=== PATIENT | female | born 1990 | race Caucasian/White ===

== ENCOUNTER 2017-11-29 12:03 | Emergency (ER) | payer OTHER, SELFPAY ==
[2017-11-29 12:40] VITALS: BP 121/64; PULSE 67; RESP 20; TEMP 37.1; O2SAT 99; BMI 38.7
[2017-11-29 13:09] VITALS: BP 153/93; PULSE 90; RESP 18; TEMP 36.8; O2SAT 100; BMI 33.9
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
[2017-11-29 14:04] LABS: Urine Pregnancy, HCG Qual. Negative (Negative)
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
[2017-11-29 16:04] VITALS: BP 142/75; PULSE 86; RESP 12; O2SAT 98
== END 2017-11-29 15:45 | disposition home or self-care (01) ==
LOC: UTC 12:47 → ER 12:53
PROVIDERS: Emergency Provider Emergency Medicine; Family Provider Family Medicine
DX: S16.1XXA Strain of muscle, fascia and tendon at neck level, initial encounter (principal); S40.011A Contusion of right shoulder, initial encounter; S70.01XA Contusion of right hip, initial encounter; S30.0XXA Contusion of lower back and pelvis, initial encounter; V87.7XXA Person injured in collision between other specified motor vehicles (traffic), initial encounter
CPT/HCPCS: 70450; 71010; 71045; 72110; 72125; 73030; 73502; 81025; 99283

== ENCOUNTER 2017-12-24 14:00 | Outpatient (RCR) | payer OTHER, SELFPAY ==
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
== END 2017-12-24 14:02 | disposition home or self-care (01) ==
LOC: OT 14:00
PROVIDERS: Family Provider Family Medicine; PCP Nurse Practitioner Family; Visit Provider Nurse Practitioner Family
DX: M25.512 Pain in left shoulder (principal)
CPT/HCPCS: 97014; 97110; 97163; 97165; G0283

== ENCOUNTER → 2019-03-03 16:01 | Day surgery (SDC) | payer SELFPAY ==
[2019-03-03] VITALS (11 sets, daily range): BP systolic 103–134; BP diastolic 62–76; PULSE 63–101; RESP 12–18; TEMP 36.6–37.2; O2SAT 96–100; BMI 38.7
--- NOTE | 2019-03-03 16:54 | HMH.OPNOTE ---
Date of procedure: 03/03/19 Pre-op Diagnosis:: Recurrent perianal abscess Post-op Diagnosis:: Same Procedure performed:: Incision and drainage of recurrent perianal abscess Surgeon:: Abhishek Edouard MD Aircraft Hydraulic Equipment Mechanic(s):: Rayray LAUNDRY BAG PUNCH OPERATOR:: Arturo Loaiza Anesthesia: LMA Estimated blood loss (mL): 5 Operative findings:: Small pocket of undrained fluid secondary to early partial closure of prior incision and drainage site Operative note:: After informed consent was obtained the patient was taken to the operating room and placed in the supine position. General anesthesia with laryngeal mask airway was achieved. She was transferred to the right lateral decubitus position. The perianal region was prepped and draped in a sterile fashion. The prior incision and drainage site was carefully opened bluntly with a finger dissection . A very thin skin margin was noted to be overlying the pocket and a small amount of undrained fluid was evacuated. The overlying skin was excised. Electrocautery was utilized to achieve hemostasis and the wound was packed open with moistened Kerlix. The entire area was infiltrated with 1% lidocaine. The patient was transferred to recovery in stable condition after removal of her laryngeal mask airway. Condition: stable Disposition: PACU Specimens:: None Complications:: No immediate
--- NOTE | 2019-03-03 16:57 | P.OP_ITS ---
Date of procedure: 03/03/19 Pre-op Diagnosis:: Recurrent perianal abscess Post-op Diagnosis:: Same Procedure performed:: Incision and drainage of recurrent perianal abscess Surgeon:: Abhishek Edouard MD Draw Fire Operator(s):: Rayray RETAIL STOCKER:: Arturo Loaiza Anesthesia: LMA Estimated blood loss (mL): 5 Operative findings:: Small pocket of undrained fluid secondary to early partial closure of prior incision and drainage site Operative note:: After informed consent was obtained the patient was taken to the operating room and placed in the supine position. General anesthesia with laryngeal mask airway was achieved. She was transferred to the right lateral decubitus position. The perianal region was prepped and draped in a sterile fashion. The prior incision and drainage site was carefully opened bluntly with a finger dissection . A very thin skin margin was noted to be overlying the pocket and a small amount of undrained fluid was evacuated. The overlying skin was excised. Electrocautery was utilized to achieve hemostasis and the wound was packed open with moistened Kerlix. The entire area was infiltrated with 1% lidocaine. The patient was transferred to recovery in stable condition after removal of her laryngeal mask airway. Condition: stable Disposition: PACU Specimens:: None Complications:: No immediate
--- NOTE | 2019-03-03 17:00 | P.PN_ITS ---
[facility] Anesthesia Checklist - Structural Data Admitted From: Home Planned Operative Procedure/s: i/d perirectal abcess Consent for Planned Operative Procedure(s) Verified: Yes - Airway Assessment C-Spine Mobility Assessed: Yes TMJ Mobility Assessed: Yes Dentition: Good Dentition - Neurological Assessment Level of Consciousness: Awake, Alert, Appropriate - Anesthesia Plan Anesthesia Risk discussed: Yes Anesthesia Plan: Verified ASA Class: II Anesthesia Type: General [facility] History I have reviewed the patient's past medical history: Yes Medical History: Denies:: Cancer, Diabetes Mellitus Type 1, Diabetes Mellitus Type 2, Internal Pacemaker, MRSA, Seizures *Have you ever received a pneumonia vaccine?: No *Have you received a flu vaccine this season?: Yes Other Medical History: Denies: Blood Transfusion Reaction Laterality Cases: Bilateral: Tonsillectomy Other Surgeries: Yes: Other. No: Pacemaker Amputation: No Fractures: Yes (LEFT ARM, AND RIGHT ANKLE) - *Social History Educational Level: Attended College Smoking Status: Current every day smoker Tobacco Type: cigarettes # Packs/Day (cigarettes): 1 Alcohol Intake: never Alcohol Intake Frequency:: a few times a month Substance Use Type: denies use *Occupational Status:: unemployed Housing: house Household Members: friend(s) *Travel in the last 8 weeks: None - Psychiatric History Expresses thoughts of harming self/others: None Suicide Plan Description: No Plan Family Hx:: Hypertension, Hyperlipidemia
--- NOTE | 2019-03-03 17:00 | HMH.ANESI ---
[facility] Anesthesia Record Part I Intake, IV Amount: 500 Estimated blood loss (mL): 0 Urine output (mL): 0 Blood Pressure: 130/75 SaO2: 96 Pulse Rate: 92 Respiratory Rate: 12 Temperature: 98.5 F Patient is:: Awake, Stable Stable to PACU at:: 16:55
--- NOTE | 2019-03-03 17:01 | P.PN_ITS ---
[facility] Anesthesia Record Part II Discharge Time: 17:25 Destination: [facility] PACU nurse assessment reviewed?: Yes Patient Condition:: Good Anesthesia Complications:: None Swallowing reflex intact?: Yes Cyanosis?: No
--- NOTE | 2019-03-03 17:01 | HMH.ANESII ---
[facility] Anesthesia Record Part II Discharge Time: 17:25 Destination: [facility] PACU nurse assessment reviewed?: Yes Patient Condition:: Good Anesthesia Complications:: None Swallowing reflex intact?: Yes Cyanosis?: No
== END ==
PROVIDERS: Visit Provider Surgery
PROC: (CPT 46050; principal; 2019-03-03 16:00)
DX: K61.0 Anal abscess (principal)
CPT/HCPCS: 46050; 96374; J1956

== ENCOUNTER → 2020-07-05 11:46 | Outpatient (CLI) | payer BC, SELFPAY ==
[2020-07-05 12:15] LABS: Basophils % 0.2 % (0.1-2.0); Eosinophils # 0.1 K/mm3 (0.0-0.4); Hematocrit 37.6 % (37.0-47.0); Lymphocytes # 2.7 K/mm3 (0.7-4.5); Lymphocytes % 28.1 % (10-50); Mean Corpuscular HGB Conc 34.4 g/dL (31.8-35.4); Mean Corpuscular Hemoglobin 32.7 pg (27.0-31.2); Mean Platelet Volume 7.1 fl (7.4-10.4); Monocytes # 0.4 K/mm3 (0.1-1.0); Monocytes % 4.1 % (1.7-9.3); Neutrophils # 6.3 K/mm3 (1.8-7.8); Neutrophils % 66.5 % (37.0-80.0); Platelet Count 234 K/mm3 (142-424); Red Blood Count 3.96 M/mm3 (4.20-5.40); Red Cell Distribution Width 13.4 % (11.5-17.5); White Blood Count 9.5 K/mm3 (4.8-10.8)
[2020-07-06 10:16] LABS: HIV Screen 4th Generation wRfx Non Reactive (Non Reactive); Hepatitis B Surface Antigen Negative (Negative); Hepatitis C Antibody <0.1 s/co ratio (0.0-0.9); Rubella Antibodies, IgG 4.11 index (Immune >0.99)
[2020-07-06 12:33] LABS: Rapid Plasma Reagin Ab Titer Non Reactive (NonRea<1:1)
== END ==
PROVIDERS: Visit Provider Nurse Practitioner Obstetrics & Gynecology
DX: Z34.90 Encounter for supervision of normal pregnancy, unspecified, unspecified trimester (principal)
CPT/HCPCS: 36415; 85025; 86592; 86703; 86762; 86850; 87340; 87380; G0432

== ENCOUNTER → 2020-07-13 13:26 | Outpatient (CLI) | payer BC, SELFPAY ==
--- NOTE | 2020-07-13 13:26 | US_ITS ---
PROCEDURE: US OB <= 14 WEEKS FETUS CLINICAL INDICATION: for dates Early Ob ultrasound for dates COMPARISON: No exams were available for comparison FINDINGS: Cervix is closed and measures 3.5 cm in length transvaginal. There is a single live fetus present with an average ultrasound age of 12 weeks and 1 day. [place]-rump length is 12 weeks 0 days, BPD 12 weeks 2 days, HC 12 weeks 2 days, AC 12 weeks 0 days, FL 12 weeks 1 day. Estimated due date is 01/24/2021. heart body motion is noted. The placenta is forming posteriorly. Unremarkable adnexa. IMPRESSION: Live IUP at 12 weeks 1 day Estimated due date by Ultrasound is 01/24/2021 Dictated by: Misael Navas MD 07/13/2020 14:32 Misael Navas MD in [place] 07/13/2020 14:32
== END ==
PROVIDERS: PCP Nurse Practitioner Family; Visit Provider Nurse Practitioner Obstetrics & Gynecology
DX: Z34.90 Encounter for supervision of normal pregnancy, unspecified, unspecified trimester (principal)
CPT/HCPCS: 76801

== ENCOUNTER 2020-07-28 12:06 | Emergency (ER) | payer BC, SELFPAY ==
[2020-07-28 12:17] VITALS: BP 99/46; PULSE 92; RESP 16; TEMP 36.9; O2SAT 98; BMI 249.9
--- NOTE | 2020-07-28 12:32 | HMH.EDGENADL ---
ED Disposition Clinical Impression: Abscess Qualifiers: Weeks of gestation: 14 weeks Qualified Code(s): Z3A.14 - 14 weeks gestation of Disposition: Home, Self-Care Condition on Discharge: Good Instructions: DI for Wound Infection Prescriptions: clindamycin HCL [Clindamycin HCl 300mg Cap] 300 mg PO Q8 #30 cap Transmission Status: Sent to [id number] Referrals: Jessica Arrington APRN [Primary Care Provider] - - Critical Care Critical Care Time: No Attestation: On 07/28/20, the high probability of a clinically significant, sudden or life threatening deterioration of the following system(s) required my full and direct attention, intervention and personal management. The time I documented below is in addition to time spent performing reported procedures but includes the following listed in this critical care notation. Medical Decision Making - Medical Records Medical records reviewed: Yes: I reviewed the patient's medical records. - Will Inquiry Pt receiving controlled substance: No Vital Signs: 07/28/20 12:17 Temperature 98.5 F Temperature Source Oral Pulse Rate [Radial] 92 H Respiratory Rate 16 Blood Pressure [Right Arm] 99/46 L Blood Pressure Mean [Right Arm] 63 Blood Pressure Position [Right Arm] Sitting 02 Sat by Pulse Oximetry 98 Oxygen Delivery Method Room Air Orders (Tests/Meds): ORDERS Category Date Time Status Wound Culture and Gram Stain Stat Micro 07/28/20 12:30 Ordered General Adult HPI - General Chief complaint: Wound/Laceration Stated complaint: large bump on left ear Time Seen by Provider: 07/28/20 12:25 Mode of Arrival: Ambulatory Source of Information: Patient Limitations: No Limitations Description of Symptoms (Recalled from ER Triage Doc. by RN): TO ED PER PVT CAR WITH C/O ABSCESS LT EAR STARTING SEEN BY PCP YESTERDAY GIVEN AMOX STATES GETTING WORSE. DENIES FEVER, CHILLS, NAUSEA, PT STATES 14 WEEKS PREG - History of Present Illness HPI narrative: This is a 29-year-old female that presents with swelling behind the left ear accompanied by tenderness. Ongoing x2 days. Patient currently on antibiotics for soft tissue infection. No fever no chills. No discharge as of yet. Pain is sharp constant worsened with palpation. Nonradiating. - Related Data Home Medications Medication Instructions Recorded Confirmed prenat.vits,peyman,pmo-zqis-dlvvo 1 tab PO DAILY 07/05/20 07/05/20 Previous Rx's Medication Instructions Recorded azithromycin 500 mg tablet 500 mg PO DAILY #2 tab 07/09/20 clindamycin HCL [Clindamycin HCl 300 mg PO Q8 #30 cap 07/28/20 300mg Cap] Allergies Allergy/AdvReac Type Severity Reaction Status Date / Time No Known Allergies Allergy Verified 07/05/20 10:50 [facility] History - Hepatitis A Screen Drug use history?: No High risk sexual behaviors?: No History of sexually transmitted infection?: No Currently employed?: No Childcare worker?: No Do you have indoor plumbing?: Yes Do you have electricity?: Yes Attestation statement:: This patient has been screened for Hepatitis A risk factors. I have reviewed the patient's past medical history: Yes Medical History: Denies:: Cancer, Diabetes Mellitus Type 1, Diabetes Mellitus Type 2, Internal Pacemaker, MRSA, Seizures Other Medical History: Denies: Blood Transfusion Reaction Laterality Cases: Bilateral: Tonsillectomy Other Surgeries: Yes: Other. No: Pacemaker Amputation: No Fractures: Yes (LEFT ARM, AND RIGHT ANKLE) Comment: I & D of perirectal abscess x2 - Social History Smoking Status: Former smoker Tobacco Type: cigarettes # Packs/Day (cigarettes): 1 Alcohol Intake: never Alcohol Intake Frequency:: a few times a month Substance Use Type: denies use Occupational Status: unemployed Housing: house Household Members: friend(s) Family Hx:: Hypertension, Hyperlipidemia ROS Obtained: Yes All systems reviewed & no additi
[2020-07-28 12:52] VITALS: BP 100/65; PULSE 78; RESP 16; TEMP 36.6; O2SAT 98
== END 2020-07-28 12:54 | disposition home or self-care (01) ==
PROVIDERS: Emergency Provider Emergency Medicine; PCP Nurse Practitioner Family
DX: H60.02 Abscess of left external ear (principal); Z3A.14 14 weeks gestation of pregnancy; Z87.891 Personal history of nicotine dependence; Z90.09 Acquired absence of other part of head and neck
CPT/HCPCS: 69000; 87070; 87077; 87186; 87205; 99282

== ENCOUNTER → 2020-09-06 13:48 | Outpatient (CLI) | payer BC, SELFPAY ==
--- NOTE | 2020-09-06 13:53 | US_ITS ---
PROCEDURE: US OB /MATERNAL DETAIL CLINICAL INDICATION: 20 week gestation COMPARISON: US US OB <= 14 WEEKS FETUS from 07/13/2020 FINDINGS: There is a single live fetus present which is in breech presentation. heart and body motion noted. The placenta is fundal in implantation and grade 1. The cervix is closed measuring 4 cm. This this Complete survey performed and was unremarkable on the submitted images as in PACS. No discrete anomalies identified on survey imaging by technologist. Active fetus. Three-vessel cord with satisfactory umbilical cord insertion. 4- chamber heart noted. Survey of brain & ventricles Unremarkable. Face and neck survey unremarkable. Diaphragm and chest views unremarkable. Abdomen: Both kidneys noted and unremarkable. Stomach noted and satisfactory. Spine: Survey of the spine satisfactory with no anomalies identified nor imaged. Both arms and legs noted. Amniotic Fluid: Adequate. Maternal adnexa: No significant findings. Measurements: Average ultrasound age 19weeks 5days. Gestational Age 19weeks 5days Estimated due date by ultrasound age 0301/26/2021. Estimated weight 307g BPD = 19weeks 6days OFD = 20 weeks 1 day HC = 19weeks 2days AC = 19weeks 6days FL = 19weeks 6days Growth Percentile= 36% Heart Rate = 150bpm Cerebellum = 20weeks Humerus = 20weeks HC/AC is 1.14 CI is 0.78 FL/BPD is 0.69 FL/AC is 0.22 IMPRESSION: Live IUP in breech presentation with an average ultrasound age of 19 weeks 5 days. No obvious anomalies. Please see above for detail. Dictated by: Misael Navas MD 09/08/2020 08:19 Misael Navas MD in [place] 09/08/2020 08:19
== END ==
PROVIDERS: PCP Nurse Practitioner Family; Visit Provider Nurse Practitioner Obstetrics & Gynecology
DX: Z34.90 Encounter for supervision of normal pregnancy, unspecified, unspecified trimester (principal); Z3A.20 20 weeks gestation of pregnancy
CPT/HCPCS: 76811

== ENCOUNTER 2020-09-13 14:33 | Emergency (ER) | payer BC, SELFPAY ==
[2020-09-13 14:53] VITALS: BP 109/59; PULSE 98; RESP 20; TEMP 37; O2SAT 97; BMI 38.7
--- NOTE | 2020-09-13 15:37 | HMH.EDUTC ---
[facility] [place] Disposition Clinical Impression: Otitis media, left Qualifiers: Otitis media type: suppurative Chronicity: acute Recurrence: non-recurrent Spontaneous tympanic membrane rupture: without spontaneous rupture Qualified Code(s): H66.002 - Acute suppurative otitis media without spontaneous rupture of ear drum, left ear Disposition: Home, Self-Care Condition on Discharge: Good Instructions: Middle Ear Infection Additional Instructions: Drink plenty of fluids. Take tylenol for pain or fever. Take the medications as directed. Follow up with your regular doctor. Let our ob doctor know that you are sick and taking antibiotics. GO TO THE ER FOR ANY WORSENING SYMPTOMS Prescriptions: Amoxicillin [Amoxicillin 500mg Tab] 500 mg PO TID 10 Days #30 tab Transmission Status: Received by [id number] Referrals: Jessica Arrington APRN [Primary Care Provider] - Time of Disposition: 15:40 Medical Decision Making - Medical Records Medical records reviewed: No: I reviewed the patient's medical records. - Will Inquiry Pt receiving controlled substance: No Vital Signs: 09/13/20 14:53 09/13/20 15:41 Temperature 98.6 F 98.6 F Temperature Source Oral Pulse Rate 98 H Pulse Rate [Left Brachial] 98 H Respiratory Rate 20 20 Blood Pressure 109/59 L Blood Pressure [Left Arm] 109/59 L Blood Pressure Mean [Left Arm] 75 Blood Pressure Source [Left Arm] Automatic Cuff Blood Pressure Position [Left Arm] Sitting 02 Sat by Pulse Oximetry 97 Oxygen Delivery Method Room Air [facility] [place] HPI - General Stated complaint: ear pain Time Seen by Provider: 09/13/20 15:38 Mode of Arrival: Ambulatory Source of Information: Patient Limitations: No Limitations Description of Symptoms (Recalled from Triage Doc. by RN): PATIENT C/O SORE THROAT AND LEFT EAR PAIN SINCE YESTERDAY. STATES SHE HEARS A CRACKLING IN LEFT EAR VO SHE SWALLOWS HEENT Symptoms (Recalled from RN notes): Yes Resp Symptoms (Recalled from RN notes): No Skin Symptoms (Recalled from RN notes): No MS Symptoms (Recalled from RN notes): No Functional Status (Recalled from RN notes): WNL - History of Present Illness Provider Complaint: She c/o left ear pain for the past 2 days. She is 21 weeks . - Related Data Home Medications Medication Instructions Recorded Confirmed prenat.vits,peyman,[id number] 1 tab PO DAILY 07/05/20 08/30/20 Previous Rx's Medication Instructions Recorded ferrous sulfate 325 mg (65 mg 325 mg PO DAILY #30 tab 08/30/20 iron) tablet Amoxicillin [Amoxicillin 500mg Tab] 500 mg PO TID 10 Days #30 tab 09/13/20 Allergies Allergy/AdvReac Type Severity Reaction Status Date / Time No Known Allergies Allergy Verified 08/30/20 10:16 - Worker's Comp Is this a Worker's Comp case?: No [facility] History - Hepatitis A Screen Drug use history?: No High risk sexual behaviors?: No History of sexually transmitted infection?: No Currently employed?: No Childcare worker?: No Do you have indoor plumbing?: Yes Do you have electricity?: Yes Attestation statement:: This patient has been screened for Hepatitis A risk factors. I have reviewed the patient's past medical history: Yes Medical History: Denies:: Cancer, Diabetes Mellitus Type 1, Diabetes Mellitus Type 2, Internal Pacemaker, MRSA, Seizures Other Medical History: Denies: Blood Transfusion Reaction Laterality Cases: Bilateral: Tonsillectomy Other Surgeries: Yes: Other. No: Pacemaker Amputation: No Fractures: Yes (LEFT ARM, AND RIGHT ANKLE) Comment: I & D of perirectal abscess x2 - Social History Smoking Status: Former smoker Tobacco Type: cigarettes # Packs/Day (cigarettes): 1 Alcohol Intake: never Alcohol Intake Frequency:: a few times a month Substance Use Type: denies use Occupational Status: other Housing: house Household Members: friend(s) Family Hx:: Hypertension, Hyperlipidemia ROS Obtained: Yes All systems reviewed & no additional complai
[2020-09-13 15:41] VITALS: BP 109/59; PULSE 98; RESP 20; TEMP 37; O2SAT 97
== END 2020-09-13 15:44 | disposition home or self-care (01) ==
PROVIDERS: Emergency Provider Nurse Practitioner Family; PCP Nurse Practitioner Family
DX: H66.002 Acute suppurative otitis media without spontaneous rupture of ear drum, left ear (principal); Z3A.21 21 weeks gestation of pregnancy; Z87.891 Personal history of nicotine dependence
CPT/HCPCS: 99201

== ENCOUNTER → 2020-10-25 14:57 | Outpatient (CLI) | payer BC, SELFPAY ==
[2020-10-25 15:00] LABS: Microscopic, Urine URINE MICROSCOPIC (MICROSCOPIC)
[2020-10-25 15:39] LABS: Appearance,Urine CLEAR (Clear); Bilirubin,Urine Negative (Negative); Blood, Urine Negative (Negative); Color,Urine YELLOW (Yellow); Glucose,Urine (UA) Negative (Negative); Ketones,Urine Negative (Negative); Leukocyte Esterase,Urine TRACE (Negative); Nitrate,Urine Negative (Negative); Protein,Urine Negative (Negative); Urobilinogen,Urine 0.2 EU/dl (0.2)
[2020-10-25 16:16] LABS: WBC,Urine Occasional #/hpf (0-3)
== END ==
PROVIDERS: Visit Provider Nurse Practitioner Obstetrics & Gynecology
DX: Z34.90 Encounter for supervision of normal pregnancy, unspecified, unspecified trimester (principal)
CPT/HCPCS: 81001

== ENCOUNTER → 2020-10-27 11:20 | Outpatient (CLI) | payer BC, SELFPAY ==
[2020-10-27 12:23] LABS: Glucose,Fasting 89 mg/dl (74-100)
[2020-10-27 13:09] LABS: Glucose 1 Hour 141 mg/dL (74-100)
== END ==
PROVIDERS: Visit Provider Nurse Practitioner Obstetrics & Gynecology
DX: Z34.90 Encounter for supervision of normal pregnancy, unspecified, unspecified trimester (principal)
CPT/HCPCS: 36415; 82951

== ENCOUNTER → 2020-11-03 07:39 | Outpatient (CLI) | payer BC, SELFPAY ==
[2020-11-03 08:36] LABS: Glucose,Fasting 101 mg/dl (74-100)
[2020-11-03 10:16] LABS: Glucose 1 Hour 143 mg/dL (74-100)
[2020-11-03 11:15] LABS: Glucose 2 Hour 103 mg/dL (74-100)
[2020-11-03 12:38] LABS: Glucose 3 Hour 82 mg/dL (74-100)
== END ==
PROVIDERS: Visit Provider Nurse Practitioner Obstetrics & Gynecology
DX: Z34.90 Encounter for supervision of normal pregnancy, unspecified, unspecified trimester (principal)
CPT/HCPCS: 36415; 82951

== ENCOUNTER → 2020-11-27 14:52 | Outpatient (CLI) | payer BC, SELFPAY ==
--- NOTE | 2020-11-27 14:53 | US_ITS ---
PROCEDURE: US OB FOLLOW UP CLINICAL INDICATION: LGA Large for gestational age COMPARISON: US US OB /MATERNAL DETAIL from 09/06/2020 FINDINGS: There is a single live fetus present which is in cephalic presentation. heart and body motion noted. Placenta is fundal and grade 2. Average ultrasound age 31 weeks 5 days. Estimated weight 1797 g. This is 39th percentile. BPD 31 weeks 4 days, OFD 31 weeks 4 days, HC 31 weeks 3 days, AC 31 weeks 6 days, FL 31 weeks 4 days. Heart rate is 165 BPM. NIKKIE is normal at 13 cm. Biophysical profile 8 of 8. Cervix is closed and measures 4 cm IMPRESSION: Live IUP at 31 weeks 5 days with an estimated weight of 1797 g which is 39th percentile. Please see above for detail. Dictated by: Misael Navas MD 11/28/2020 06:39 Misael Navas MD in [place] 11/28/2020 06:39
== END ==
PROVIDERS: PCP Nurse Practitioner Family; Visit Provider Nurse Practitioner Obstetrics & Gynecology
DX: O36.60X0 Maternal care for excessive fetal growth, unspecified trimester, not applicable or unspecified (principal)
CPT/HCPCS: 76816; 76819

== ENCOUNTER → 2020-12-25 18:11 | Outpatient (CLI) | payer BC, SELFPAY | PROVIDERS: Visit Provider Nurse Practitioner Obstetrics & Gynecology | DX: Z34.90 Encounter for supervision of normal pregnancy, unspecified, unspecified trimester (principal); Z3A.35 35 weeks gestation of pregnancy | CPT/HCPCS: 86403 ==

== ENCOUNTER → 2021-01-03 11:23 | Outpatient (CLI) | payer BC, SELFPAY | PROVIDERS: Visit Provider Nurse Practitioner Obstetrics & Gynecology | DX: Z20.822 Contact with and (suspected) exposure to COVID-19 (principal); U07.1 COVID-19 | CPT/HCPCS: U0003 ==

== ENCOUNTER → 2021-01-16 17:01 | Outpatient (CLI) | payer BC, SELFPAY ==
[2021-01-22 07:19] VITALS: BMI 44.9
== END ==
PROVIDERS: Visit Provider Nurse Practitioner Obstetrics & Gynecology
DX: N39.0 Urinary tract infection, site not specified (principal)
CPT/HCPCS: 87086; 87088; 87186

== ENCOUNTER → 2021-01-22 07:52 | Outpatient (CLI) | payer BC, SELFPAY | PROVIDERS: Visit Provider Nurse Practitioner Obstetrics & Gynecology | DX: Z11.52 Encounter for screening for COVID-19 (principal) | CPT/HCPCS: U0003 ==

== ENCOUNTER 2021-01-23 05:04 | Inpatient (IN) | payer BC, SELFPAY ==
[2021-01-23] VITALS (10 sets, daily range): BP systolic 114–132; BP diastolic 41–77; PULSE 85–99; RESP 12–18; TEMP 36.4–37.1; O2SAT 99–100; BMI 44.9; BMI 44.6
[2021-01-23 06:11] LABS: Microscopic, Urine URINE MICROSCOPIC (MICROSCOPIC)
[2021-01-23 06:27] LABS: Basophils % 0.2 % (0.1-2.0); Eosinophils # 0.1 K/mm3 (0.0-0.4); Eosinophils % 0.8 % (0.1-12.0); Hematocrit 36.6 % (37.0-47.0); Hemoglobin 12.1 g/dL (12.2-16.2); Lymphocytes # 2.5 K/mm3 (0.7-4.5); Lymphocytes % 25.3 % (10-50); Mean Corpuscular Hemoglobin 30.2 pg (27.0-31.2); Mean Corpuscular Volume 91.6 fl (81-99); Mean Platelet Volume 7.8 fl (7.4-10.4); Monocytes # 0.5 K/mm3 (0.1-1.0); Monocytes % 4.7 % (1.7-9.3); Neutrophils # 6.9 K/mm3 (1.8-7.8); Neutrophils % 69.1 % (37.0-80.0); Platelet Count 257 K/mm3 (142-424); Red Blood Count 3.99 M/mm3 (4.20-5.40); Red Cell Distribution Width 13.5 % (11.5-17.5)
[2021-01-23 06:41] LABS: Appearance,Urine CLEAR (Clear); Bilirubin,Urine Negative (Negative); Blood, Urine Negative (Negative); Color,Urine YELLOW (Yellow); Glucose,Urine (UA) Negative (Negative); Ketones,Urine Negative (Negative); Leukocyte Esterase,Urine 1+ (Negative); Nitrate,Urine Negative (Negative); PH,Urine 6.5 (5.0-8.5); Protein,Urine Negative (Negative); Specific Gravity, Urine 1.025 (1.005-1.030); Urobilinogen,Urine 0.2 EU/dl (0.2)
[2021-01-23 07:04] LABS: Bacteria,Urine Trace /lpf; RBC,Urine Occasional #/hpf (0-3)
[2021-01-23 08:01] LABS: Amphetamine/Metha Screen,Urine Negative ng/ml (<1000); Barbiturates Screen,Urine Negative ng/ml (<200)
[2021-01-23 08:02] LABS: Benzodiazepines Screen,Urine Negative ng/ml (<200)
[2021-01-23 08:03] LABS: Cannabinoid Screen,Urine Negative ng/ml (<50)
[2021-01-23 08:11] LABS: Cocaine Screen,Urine Negative ng/ml (<300)
[2021-01-23 08:12] LABS: Methadone Screen,Urine Negative ng/ml (<300); Opiate Screen,Urine Negative ng/ml (<300)
[2021-01-23 08:13] LABS: Phencyclidine Screen,Urine Negative ng/ml (<25)
--- NOTE | 2021-01-23 08:33 | HMH.LABNOT ---
Labor Note - Subjective: Date: 01/23/21 Time: 07:05 regular contraction - Objective: NST:: Reactive Contractions:: every 2-3 minutes Cervical Dilation:: 2 Effacement:: 50% Station: -3 Membranes: artificially ruptured - Fetus: Monitoring?: Yes monitoring type:: Internal and External Comment:: I inserted an IUPC. - Assessment: Labor progressing?: Yes Cephalopelvic disproportion?: No Patient Problems: All Active Problems Otitis media, left (Acute) (Acute) - Plan: Anesthesia for epidural?: No Continue to labor down?: Yes Plan for ?: No Continue to monitor?: Yes Start pushing?: No
--- NOTE | 2021-01-23 08:34 | HMH.OBAPHP ---
OB - H&P: HPI Antepartum - History of Present Illness Chief complaint: Term History of present illness: She is a 30-year-old 1 now para 0 at 39 and 6 weeks gestational age. She was having occasional contractions and some pressure and as result of that we elected to induce her labor at term. - History of Present Criteria for establishing EDC:: LMP confirmed by 1st trimester US care: good care Ultrasounds: normal 1st trimester US, normal mid trimester US Obstetrical complications: none Medical complications: none - Labs Blood type: O (+) positive Rubella: immune RPR/VDRL: nonreactive GBS status: negative HBsAG: negative [facility] History I have reviewed the patient's past medical history: Yes Medical History: Denies:: Cancer, Diabetes Mellitus Type 1, Diabetes Mellitus Type 2, Internal Pacemaker, MRSA, Seizures *Have you ever received a pneumonia vaccine?: No *Have you received a flu vaccine this season?: Yes Other Medical History: Denies: Blood Transfusion Reaction Laterality Cases: Bilateral: Tonsillectomy Other Surgeries: Yes: Other. No: , Pacemaker Amputation: No Fractures: Yes (LEFT ARM, AND RIGHT ANKLE) - *Social History Smoking Status: Former smoker Tobacco Type: cigarettes # Packs/Day (cigarettes): 1 Alcohol Intake: never Alcohol Intake Frequency:: a few times a month Substance Use Type: denies use *Occupational Status:: employed Housing: house Household Members: friend(s) *Travel in the last 8 weeks: None Family Hx:: Hypertension, Hyperlipidemia Para: 0 Review of Systems - Review of Systems Review of systems:: pertinent systems reviewed and negative unless documented below Meds Home Medications Medication Instructions Recorded Confirmed Type prenat.vits,peyman,[id number] 1 tab PO DAILY 07/05/20 01/23/21 History Allergies Allergy/AdvReac Type Severity Reaction Status Date / Time No Known Allergies Allergy Verified 01/16/21 16:27 OB - H&P: Exam - Physical Exam Vital signs: Temp Pulse Resp BP Pulse Ox 97.6 F 88 17 132/59 L 100 01/23/21 07:42 01/23/21 07:42 01/23/21 07:42 01/23/21 07:42 01/23/21 07:42 - Constitutional no acute distress - Routine HEENT Exam Head: Present: normocephalic Eye: Present: EOMI, PERRL ENT: Present: mucous membranes moist - Routine Neck Exam Present: supple, full ROM - Routine Respiratory Exam Absent: accessory muscle use (good air entry bilaterally), respiratory distress, wheezes, crackles - Routine Cardiovascular Exam Present: RRR. Absent: murmur - Routine Abdominal Exam Present: soft, normoactive bowel sounds. Absent: tenderness, distended, guarding - Routine Rectal Exam Patient deferred: visual exam, digital exam - Routine Exam Patient deferred: external exam, groin exam, perineal exam - Routine Extremities Exam Present: full ROM. Absent: cyanosis, edema - Routine Skin Exam Present: intact. Absent: cyanosis - Routine Neurological Exam Present: alert, oriented X3 - Routine Psychiatric Exam Present: normal affect OB - Results - Labs Labs: Short CBC 01/23/21 Range/Units 05:30 WBC 10.0 (4.8-10.8) K/mm3 Hgb 12.1 L (12.2-16.2) g/dL Hct 36.6 L (37.0-47.0) % Plt Count 257 (142-424) K/mm3 Urine 01/23/21 Range/Units 05:30 Urine Color Yellow (Yellow) Urine Appearance Clear (Clear) Urine pH 6.5 (5.0-8.5) Ur Specific [place] 1.025 (1.005-1.030) Urine Protein Negative (Negative) Urine Glucose (UA) Negative (Negative) OB - A/P Antepartum (1) Normal delivery at term Status: Acute - Additional Plan Planning to breastfeed?: Yes Plan: induction Additional Information:: I have ruptured her membranes and there was clear fluid. We inserted an IUPC. We will expect a vaginal delivery
--- NOTE | 2021-01-23 09:54 | HMH.LABNOT ---
Labor Note - Subjective: Date: 01/23/21 Time: 09:35 regular contraction - Objective: NST:: Reactive Contractions:: every 2-3 minutes Cervical Dilation:: 3 Effacement:: 50% Station: -3 Membranes: artificially ruptured - Fetus: Monitoring?: Yes monitoring type:: External - Assessment: Labor progressing?: Yes Cephalopelvic disproportion?: No Patient Problems: All Active Problems Otitis media, left (Acute) Normal delivery at term (Acute) (Acute) - Plan: Anesthesia for epidural?: No Continue to labor down?: Yes Plan for ?: No Continue to monitor?: Yes Start pushing?: No
--- NOTE | 2021-01-23 12:10 | HMH.LABNOT ---
Labor Note - Subjective: Date: 01/23/21 Time: 12:10 regular contraction - Objective: NST:: Reactive Contractions:: every 2-3 minutes Cervical Dilation:: 3 Effacement:: 50% Station: -3 Membranes: artificially ruptured - Fetus: Monitoring?: Yes monitoring type:: Internal and External - Assessment: Labor progressing?: No Cephalopelvic disproportion?: No Patient Problems: All Active Problems Otitis media, left (Acute) Normal delivery at term (Acute) (Acute) - Plan: Anesthesia for epidural?: No Continue to labor down?: Yes Plan for ?: No Continue to monitor?: Yes Start pushing?: No Comment:: She really has not progressed much since this morning. We will continue to monitor her. The baby's head is really high. We will continue with the oxytocin. She is having regular contractions.
--- NOTE | 2021-01-23 13:52 | HMH.LABNOT ---
Labor Note - Subjective: Date: 01/23/21 Time: 13:52 regular contraction - Objective: NST:: Reactive Contractions:: every 2-3 minutes Cervical Dilation:: 3 Effacement:: 50% Station: -3 Membranes: artificially ruptured - Fetus: Monitoring?: Yes monitoring type:: Internal and External - Assessment: Labor progressing?: No Cephalopelvic disproportion?: No Patient Problems: All Active Problems Otitis media, left (Acute) Normal delivery at term (Acute) (Acute) - Plan: Anesthesia for epidural?: No Continue to labor down?: Yes Plan for ?: Yes Continue to monitor?: Yes Start pushing?: No Comment:: She has not really progressed despite the fact that the contractions are every 2 minutes. The cervix very soft and still 3 cm. The baby's head is very high. We will see how she does over the next few hours. If she does not progress beyond this then we will diagnose her with pelvic disproportion and perform a section.
--- NOTE | 2021-01-23 17:28 | P.PN_ITS ---
Internal Medicine - PN: Subj *Date: 01/23/21 *Time: 17:28 Interval history: She has been laboring all day and the baby's head is still very high. She is 3 to 4 cm 50% effaced. Nonstress test is reactive. She has been steve every 2 to 3 minutes. Given the fact that she really has not changed much her at the whole day and the baby's head is extremely high we will just go ahead with a section. Exam Vital signs and Labs for Last 24 Hours: Temp Pulse Resp BP Pulse Ox 97.8 F 90 18 126/72 99 01/23/21 15:36 01/23/21 15:36 01/23/21 15:36 01/23/21 15:36 01/23/21 15:36 Laboratory Results - last 24 hr 01/23/21 05:30: WBC 10.0, RBC 3.99 L, Hgb 12.1 L, Hct 36.6 L, MCV 91.6, MCH 30.2, MCHC 33.0, RDW 13.5, Plt Count 257, MPV 7.8, Neut % (Auto) 69.1, Lymph % (Auto) 25.3, [place] % (Auto) 4.7, Eos % (Auto) 0.8, Baso % (Auto) 0.2, Neut # (Auto) 6.9, Lymph # (Auto) 2.5, [place] # (Auto) 0.5, Eos # (Auto) 0.1, Baso # (A uto) 0.0 01/23/21 05:30: Urine Color Yellow, Urine Appearance Clear, Urine pH 6.5, Ur Specific [place] 1.025, Urine Protein Negative, Urine Glucose (UA) Negative, Urine Ketones Negative, Urine Blood Negative, Urine Nitrate Negative, Urine Bilirubin Negative, Urine Urobilinogen 0.2, Ur Leukocyte Esterase 1+ A, Urine RBC Occasional, Urine WBC 5-10, Ur Squamous Epith Cells 3-5, Urine Bacteria Trace 01/23/21 05:30: Urine Opiates Screen Negative, Urine Methadone Screen Negative, Ur Barbituates Screen Negative, Ur Phencyclidine Scrn Negative, Ur Amphetamines Screen Negative, U Benzodiazepines Scrn Negative, Urine Cocaine Screen Negative, U Marijuana (THC) Screen Negative 01/23/21 05:30: Blood Type O Positive, Antibody Screen Negative I & O for Last 24 hours: Intake & Output 01/21/21 01/22/21 01/23/21 01/24/21 11:59 11:59 11:59 11:59 Weight 278 lb 0.011 oz - Constitutional no acute distress - *Routine HEENT Exam Head: Present: normocephalic Eye: Present: EOMI, PERRL ENT: Present: mucous membranes moist Assessment and Plan (1) Normal delivery at term Status: Inactive Category: Medical Code(s): O80 - Encounter for full-term uncomplicated delivery (2) pelvic disproportion delivered Status: Acute Category: Medical Code(s): O33.9 - Maternal care for disproportion, unspecified (3) Maternal obesity affecting , antepartum Status: Acute Category: Medical Code(s): O99.210 - Obesity complicating p regnancy, unspecified trimester - Assessment and plan all Dx Assessment and Plan for all problems:: She has failed to progress beyond 3 to 4 cm. The baby's head is still very high. There is molding of the head. Given the fact that there is very little descent despite some minimal dilation we will go ahead with a for failure to progress, pelvic disproportion. We discussed the risks of surgery that includes bleeding, infection, injuries to the bowel and bladder. We discussed the rare risk of DVT. We discussed the need for DVT prophylaxis. All questions were answered and consents were signed.
--- NOTE | 2021-01-23 19:08 | HMH.OPNOTE ---
Date of procedure: 01/23/21 Pre-op Diagnosis:: Term , pelvic disproportion Post-op Diagnosis:: Term , pelvic disproportion, uterine atony Procedure performed:: Primary lower segment transverse section, B-Nguyen suture Surgeon:: Kashif Coronado MD Fisher Eel Spear(s):: Dr. Edouard SUPERVISOR COFFEE:: Arturo Loaiza Anesthesia: spinal Estimated blood loss (mL): 600 Clinical Note:: She is a 30-year-old 1 now para 0 at 39+ weeks gestational age. She was feeling pressure and since she was 39+ weeks we elected to induce her labor at term. She was started on IV oxytocin had her membranes ruptured. She progressed to 3 to 4 cm and really failed to progress beyond that. The baby's head did not descend into the pelvis. As result of that pelvic disproportion was diagnosed and she was taken for a primary lower segment transverse section. The risks and benefits of surgery were discussed with the patient and her mother prior to surgery. Operative findings:: She delivered a liveborn female child at 6:35 PM on the evening of January 23, 2021. The baby had Apgars of 8 at 1 minute and 9 at 5 minutes. Ovaries and tubes appeared normal. The uterus was somewhat boggy and we did do a B. Nguyen suture. Operative note:: She was taken to the operating room where spinal anesthesia was found be adequate. She was prepped and draped in normal sterile fashion in the supine position with a leftward tilt. A Ortega catheter was in the bladder. A Pfannenstiel skin incision was made with knife then carried through to the underlying layer of fascia with cautery. The fascia was opened in the midline with cautery and extended laterally using Rosenberg scissors. Juneau clamps were applied to the superior aspect of the fascial incision which was tented up and the underlying rectus muscles dissected off using cautery. The [place]au clamps were then applied to the inferior aspect of the fascial incision which in a similar fashion was tented up and the underlying rectus muscles dissected off using cautery. The rectus muscles were then in the midline, the peritoneum identified, and entered sharply with Metzenbaum scissors. This incision was then extended superiorly and inferiorly with cautery. We had good visualization of the bladder inferiorly. An Roni retractor was then placed within the abdominal cavity. The bladder peritoneum was then opened in the midline and extended laterally using Metzenbaum scissors. A bladder flap was created digitally. Transverse incision was made through the uterine muscle to the amnion. This incision was then extended laterally using fingers traction. The amnion was entered sharply with knife. There was clear amniotic fluid. The infant's head was then delivered atraumatically. This was followed by the anterior shoulder and the rest of the infant's body atraumatically. The oropharynx and nasopharynx were bulb suctioned. The infant was vigorous and cried so we allowed the cord to continue to pulsate for approximately 1 minute. The was then handed off to Dr. Leslie who assigned Apgars of 8 at 1 minute and 9 at 5 minutes. We then obtained cord blood as well as cord pH. Using gentle traction on the cord and countertraction on the fundus I was able to easily deliver the placenta intact. It had a normal three-vessel cord. The uterus was then cleared of clots and debris . The uterine incision was then closed using running 0 Vicryl suture in a locked fashion. A second layer of the same suture was used to imbricate the first layer. The bladder peritoneum was then closed using running 2-0 Vicryl suture in a locked fashion. The gutters and cul-de-sac were then cleared of clots and debris . Once again hemostasis was assured. The uterus was quite boggy so we elected to place a B. Nguyen suture. I used #1 Vicryl suture and took a large bite anteriorly. This was then passed over the uterine fundus and 2 bites were taken p
--- NOTE | 2021-01-23 19:15 | HMH.ANESCL ---
[facility] Anesthesia Checklist - Structural Data Admitted From: Inpatient Planned Operative Procedure/s: c/section Consent for Planned Operative Procedure(s) Verified: Yes - Additional verifications Anesthesia Reactions: No Hx Blood Transfusions: No Blood Transfusion Reaction: No - Airway Assessment C-Spine Mobility Assessed: Yes TMJ Mobility Assessed: Yes Dentition: Good Dentition - Neurological Assessment Level of Consciousness: Awake, Alert, Appropriate - Anesthesia Plan Anesthesia Risk discussed: Yes Anesthesia Plan: Verified ASA Class: II Anesthesia Type: Spinal [facility] History I have reviewed the patient's past medical history: Yes Medical History: Denies:: Cancer, Diabetes Mellitus Type 1, Diabetes Mellitus Type 2, Internal Pacemaker, MRSA, Seizures *Have you ever received a pneumonia vaccine?: No *Have you received a flu vaccine this season?: Yes Other Medical History: Denies: Blood Transfusion Reaction Anesthesia experience/problems:: none Laterality Cases: Bilateral: Tonsillectomy Other Surgeries: Yes: Other. No: , Pacemaker Amputation: No Fractures: Yes (LEFT ARM, AND RIGHT ANKLE) - *Social History Smoking Status: Former smoker Tobacco Type: cigarettes # Packs/Day (cigarettes): 1 Alcohol Intake: never Alcohol Intake Frequency:: a few times a month Substance Use Type: denies use *Occupational Status:: employed Housing: house Household Members: friend(s) *Travel in the last 8 weeks: None Family Hx:: Hypertension, Hyperlipidemia Para: 0
--- NOTE | 2021-01-23 19:16 | HMH.ANESI ---
[facility] Anesthesia Record Part I Intake, IV Amount: 1,500 Estimated blood loss (mL): 600 Urine output (mL): 250 Blood Pressure: 131/77 SaO2: 100 Pulse Rate: 98 Respiratory Rate: 12 Temperature: 98.2 F Patient is:: Awake, Stable Stable to PACU at:: 19:10
[2021-01-23 20:20] LABS: POC Glucose,Bedside 50 (70-110)
[2021-01-24 00:10] VITALS: BP 109/55; PULSE 109; RESP 18; TEMP 37.1; O2SAT 98
[2021-01-24 04:05] VITALS: BP 111/58; PULSE 111; RESP 18; TEMP 36.8; O2SAT 98
[2021-01-24 07:35] LABS: Hematocrit 32.5 % (37.0-47.0); Hemoglobin 10.3 g/dL (12.2-16.2)
[2021-01-24 08:00] VITALS: BP 90/54; PULSE 113; RESP 18; TEMP 36.7; O2SAT 98
--- NOTE | 2021-01-24 08:56 | P.PN_ITS ---
Internal Medicine - PN: Subj *Date: 01/24/21 *Time: 08:56 Interval history: She is doing very well this morning. Her lochia is normal. She is breast- feeding. Her pain is well controlled. She is 1 day post section. Exam Vital signs and Labs for Last 24 Hours: Temp Pulse Resp BP Pulse Ox 98.2 F 111 H 18 111/58 L 98 01/24/21 04:05 01/24/21 04:05 01/24/21 04:05 01/24/21 04:05 01/24/21 04:05 Laboratory Results - last 24 hr 01/23/21 18:43: Cord ABG pH 7.30 L 01/23/21 20:09: POC Glucose 50 L 01/24/21 07:12: Hgb 10.3 L, Hct 32.5 L I & O for Last 24 hours: Intake & Output 01/21/21 01/22/21 01/23/21 01/24/21 11:59 11:59 11:59 11:59 Intake Total 1500 / 1500 Output Total 1700 / 1700 Balance -200 / -200 Weight 278 lb 0.011 oz Microbiology Reports for the Last 24 Hours: Microbiology 01/23/21 05:30 Urine,Clean Catch Urine Culture - Preliminary - Constitutional no acute distress - *Routine HEENT Exam Head: Present: normocephalic Eye: Present: EOMI, PERRL ENT: Present: mucous membranes moist Assessment and Plan (1) Normal delivery at term Status: Inactive Category: Medical Code(s): O80 - Encounter for full-term uncomplicated delivery (2) pelvic disproportion delivered Status: Acute Category: Medical Code(s): O33.9 - Maternal care for disproportion, unspecified (3) Maternal obesity affecting , antepartum Status: Acute Category: Medical Code(s): O99.210 - Obesity complicating , unspecified trimester - Assessment and plan all Dx Assessment and Plan for all problems:: She is doing very well this morning. She is eating and drinking and ambulating. Her pain is well controlled. She is breast-feeding. We will plan to send her home in 48 hours.
[2021-01-24 12:00] VITALS: BP 109/65; PULSE 98; RESP 18; TEMP 36.5; O2SAT 98
--- NOTE | 2021-01-24 14:01 | SW/DCPLANNER ---
RECEIVED REFERRAL FOR THIS PATIENT STATING PATIENTS FIRST VISIT WAS POSITIVE FOR THC... PATIENT PRESENTED INTO THE HOSPITAL AND DELIVERED A LIVE BORN FEMALE VIA ... THIS IS THE FIRST CHILD, SHE NAMED THE INFANT CHANO WASSERMAN.. SHE HAS WIC AND NOT INTERESTED IN HANDS. SHE HAS CHOSEN DR PAREDES THE INFANTS DOCTOR. SHE PLANS TO BREASTFEED AND IF THE NEED SUPPLEMENT WITH BOTTLES, HER MOTHER WAS AT BEDSIDE AND SUPPORTIVE.SHE STATED SHE HAS EVERTHING SHE NEEDS TO TAKE HER INFANT HOME..PATIENT HAS BONDED WELL WITH INFANT AND AT THIS TIME I DON'T SEE ANY ISSUES TO ADDRESS.
[2021-01-24 16:00] VITALS: BP 117/67; PULSE 108; RESP 18; TEMP 36.7; O2SAT 98
[2021-01-24 21:00] VITALS: BP 124/72; PULSE 103; RESP 18; TEMP 36.4; O2SAT 98
[2021-01-25 04:20] VITALS: BP 91/55; PULSE 99; RESP 18; TEMP 36.9; O2SAT 99
[2021-01-25 08:00] VITALS: BP 117/61; PULSE 108; RESP 18; TEMP 36.6; O2SAT 99
--- NOTE | 2021-01-25 10:43 | P.PN_ITS ---
Internal Medicine - PN: Subj *Date: 01/25/21 *Time: 10:44 Interval history: She is doing well. She is day 2 post section. Her pain is well controlled and she is breast-feeding. Her lochia is normal. Exam Vital signs and Labs for Last 24 Hours: Temp Pulse Resp BP Pulse Ox 97.9 F 108 H 18 117/61 99 01/25/21 08:00 01/25/21 08:00 01/25/21 08:00 01/25/21 08:00 01/25/21 08:00 I & O for Last 24 hours: Intake & Output 01/22/21 01/23/21 01/24/21 01/25/21 11:59 11:59 11:59 11:59 Intake Total 1500 / 1500 Output Total 1700 / 1700 Balance -200 / -200 Weight 278 lb 0.011 oz Microbiology Reports for the Last 24 Hours: Microbiology 01/23/21 05:30 Urine,Clean Catch Urine Culture - Final Multiple organisms, suggests contamination. - Constitutional no acute distress - *Routine HEENT Exam Head: Present: normocephalic Eye: Present: EOMI, PERRL ENT: Present: mucous membranes moist Assessment and Plan (1) Normal delivery at term Status: Inactive Category: Medical Code(s): O80 - Encounter for full-term uncomplicated delivery (2) pelvic disproportion delivered Status: Acute Category: Medical Code(s): O33.9 - Maternal care for dis proportion, unspecified (3) Maternal obesity affecting , antepartum Status: Acute Category: Medical Code(s): O99.210 - Obesity complicating , unspecified trimester - Assessment and plan all Dx Assessment and Plan for all problems:: She continues to do well. She is breast-feeding. Her pain is well controlled. We will plan to send her home tomorrow.
[2021-01-25 12:00] VITALS: BP 128/76; PULSE 102; RESP 18; TEMP 36.7; O2SAT 99
[2021-01-25 19:40] VITALS: BP 113/76; PULSE 108; RESP 18; TEMP 36.7; O2SAT 99
[2021-01-25 23:55] VITALS: BP 117/69; PULSE 100; RESP 18; TEMP 36.9; O2SAT 99
[2021-01-26 03:30] VITALS: BP 102/56; PULSE 97; RESP 18; TEMP 36.4; O2SAT 98
[2021-01-26 08:40] VITALS: BP 105/63; PULSE 99; RESP 18; TEMP 36.7; O2SAT 99
--- NOTE | 2021-01-26 09:34 | HMH.OBDCSM ---
General - General Admission date:: 01/23/21 Discharge date: 01/26/21 HPI - History of Present Illness History of present illness: She is a 30-year-old 1 now para 1 who was 39 and 6 weeks gestational age. She was feeling discomfort and pressure so we elected to induce her labor at term. Hospital Course Hospital Course: She was started on IV oxytocin had her membranes ruptured. She really failed to progress beyond 3 to 4 cm. As result of that pelvic disproportion was diagnosed. We took her for a primary lower segment transverse section. She delivered a liveborn female child at 6:35 PM in the evening of January 23, 2021. Baby weighed 6 pounds 10 ounces and was 18 inches long. She had Apgars of 8 at 1 minute and 9 at 5 minutes. She has done well postoperatively and has remained afebrile throughout her hospitalization. She is eating and drinking and ambulating. She is breast-feeding. She has O+ blood, she is rubella immune and was group B streptococcus negative. 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 She is discharged home to follow-up in approximately 2 weeks time. She will continue with her vitamins and iron. She was given a prescription for Percocet 5/325 number 20 tablets. She was given usual instructions with respect to limiting activity, driving and sexual activity. Her condition on discharge is stable and improved. Rhogam Administration: Not Indicated Objective Vital signs: Temp Pulse Resp BP Pulse Ox 98.0 F 99 H 18 105/63 L 99 01/26/21 08:40 01/26/21 08:40 01/26/21 08:40 01/26/21 08:40 01/26/21 08:40 no acute distress - *Routine HEENT Exam Head: Present: normocephalic Eye: Present: EOMI, PERRL ENT: Present: mucous membranes moist DS: Diagnosis - Discharge Diagnosis (1) Normal delivery at term Status: Inactive (2) pelvic disproportion delivered Status: Acute (3) Maternal obesity affecting , antepartum Status: Acute Discharge Plan - Patient Discharge Instructions ACTIVITY: No heavy lifting DIET: continue same diet Additional Instructions: Nothing in the vagina for 6 weeks, no tub baths, drink plenty of fluids Clean incision twice a day Patient Instructions: Depression, Hemorrhage, DI for , DI for Pre-eclampsia, [facility] Post Discharge Instructions, Preventing the Spread of Coronavirus Discharge Instructions - Follow up Plan Follow up with: Kashif Coronado MD [Staff Physician] - 02/12/21 3:30 pm Disposition: Home, Self-Usp Medications: Home Medications Medication Instructions Recorded Confirmed Type prenat.vits,peyman,[id number]-vrome 1 tab PO DAILY 07/05/20 01/23/21 History Oxycodone HCl/Acetaminophen 1 tab PO Q4-6H PRN #20 tab 01/26/21 Rx [Percocet 5/325mg tablet] Prescriptions/Medication Reconciliation: New Oxycodone HCl/Acetaminophen [Percocet 5/325mg tablet] 1 tab PO Q4-6H PRN #20 tab PRN Reason: Severe Pain Continued prenat.vits,peyman,[id number] 1 tab PO DAILY - Problem Reconciliation Problems Reviewed?: Yes
== END 2021-01-26 11:15 | disposition home or self-care (01) | DRG 788 ==
PROVIDERS: Admitting Provider Nurse Practitioner Obstetrics & Gynecology; PCP Nurse Practitioner Family; Visit Provider Nurse Practitioner Obstetrics & Gynecology
PROC: 10D00Z1 Extraction of Products of Conception, Low, Open Approach (ICD-10-PCS; CPT 59514; principal; 2021-01-23 18:00)
DX: O65.4 Obstructed labor due to fetopelvic disproportion, unspecified (principal); Z3A.39 39 weeks gestation of pregnancy; Z37.0 Single live birth; O75.89 Other specified complications of labor and delivery
CPT/HCPCS: 59514; 36415; 59025; 80305; 81001; 82800; 82962; 85014; 85018; 85025; 86850; 87086; 94761; C1758; G0283; U0003

== ENCOUNTER 2021-04-01 09:42 | Emergency (ER) | payer BC, SELFPAY ==
[2021-04-01 09:44] VITALS: BP 111/58; PULSE 77; RESP 17; O2SAT 97; BMI 38.7
[2021-04-01 09:57] VITALS: BP 111/58; PULSE 77; RESP 17; TEMP 36.6; O2SAT 97
--- NOTE | 2021-04-01 10:09 | HMH.EDUTC ---
[facility] [place] Impression: Otitis media Qualifiers: Otitis media type: suppurative Chronicity: acute Laterality: unspecified laterality Recurrence: non-recurrent Spontaneous tympanic membrane rupture: without spontaneous rupture Qualified Code(s): H66.009 - Acute suppurative otitis media without spontaneous rupture of ear drum, unspecified ear Sinusitis Qualifiers: Sinusitis location: unspecified location Chronicity: acute Recurrence: non-recurrent Qualified Code(s): J01.90 - Acute sinusitis, unspecified Disposition: Home, Self-Care Condition on Discharge: Good Instructions: DI for Sinusitis Additional Instructions: Drink plenty of fluids. Take tylenol or ibuprofen for pain or fever. Take the medications as directed. Follow up with your regular doctor. GO TO THE ER FOR ANY WORSENING SYMPTOMS Prescriptions: Azithromycin [Z-Darien 250mg Tab*] 250 mg PO UD DOSE PK #6 tab Transmission Status: Received by [facility] Referrals: Jessica Arrington APRN [Primary Care Provider] - Forms: Work/School Release Time of Disposition: 10:26 Medical Decision Making - Medical Records Medical records reviewed: No: I reviewed the patient's medical records. - Will Inquiry Pt receiving controlled substance: No Vital Signs: 04/01/21 09:44 04/01/21 09:57 Temperature 97.9 F Temperature Source Oral Oral Pulse Rate 77 Pulse Rate [Left] 77 Respiratory Rate 17 17 Blood Pressure 111/58 L Blood Pressure [Right Arm] 111/58 L Blood Pressure Mean [Right Arm] 75 02 Sat by Pulse Oximetry 97 - Lab Data Lab Results 04/01/21 10:10: Strep [facility] Negative Orders (Tests/Meds): ORDERS Category Date Time Status Strep Screen Confirmation Stat Micro 04/01/21 10:10 [place] [facility] [place] - General Stated complaint: ear pain sore throat Time Seen by Provider: 04/01/21 10:09 Mode of Arrival: Ambulatory Source of Information: Patient Limitations: No Limitations Description of Symptoms (Recalled from Triage Doc. by RN): Sore throat, bilateral ear pain and stuffy nose HEENT Symptoms (Recalled from RN notes): Yes Resp Symptoms (Recalled from RN notes): No Skin Symptoms (Recalled from RN notes): No MS Symptoms (Recalled from RN notes): No Functional Status (Recalled from RN notes): wnl - History of Present Illness Provider Complaint: She states that for the past 2 days she has had a sore throat, sinus pressure and bilateral ear pain. She has ran a low grade fever. She denies any covid exposure. - Related Data Home Medications Medication Instructions Recorded Confirmed prenat.vits,peyman,[id number] 1 tab PO DAILY 07/05/20 03/19/21 Previous Rx's Medication Instructions Recorded metoclopramide HCl 5 mg tablet 5 mg PO QID 14 Days #56 tab 03/06/21 Azithromycin [Z-[place] 250mg Tab*] 250 mg PO UD DOSE PK #6 tab 04/01/21 Allergies Allergy/AdvReac Type Severity Reaction Status Date / Time No Known Allergies Allergy Verified 04/01/21 09:56 - Worker's Comp Is this a Worker's Comp case?: No [facility] History - Hepatitis A Screen Drug use history?: No High risk sexual behaviors?: No History of sexually transmitted infection?: No Currently employed?: No Childcare worker?: No Do you have indoor plumbing?: Yes Do you have electricity?: Yes Attestation statement:: This patient has been screened for Hepatitis A risk factors. I have reviewed the patient's past medical history: Yes Medical History: Denies:: Cancer, Diabetes Mellitus Type 1, Diabetes Mellitus Type 2, Internal Pacemaker, MRSA, Seizures Other Medical History: Denies: Blood Transfusion Reaction Laterality Cases: Bilateral: Tonsillectomy Other Surgeries: Yes: Other. No: , Pacemaker Amputation: No Fractures: Yes (LEFT ARM, AND RIGHT ANKLE) Comment: I & D of perirectal abscess x2 - Social History Smoking Status: Never smoker Tobacco Type: cigarettes # Packs/Day (cigarettes): 1 Alcohol Intake:
[2021-04-01 10:15] LABS: UTC Strep Screen (Rapid) Negative (Negative)
--- NOTE | 2021-04-01 19:15 | PC.NURSE ---
Pt notified of Positive Covid result 04-01-2021 at 1721.
== END 2021-04-01 10:39 | disposition home or self-care (01) ==
PROVIDERS: Emergency Provider Nurse Practitioner Family; PCP Nurse Practitioner Family
DX: U07.1 COVID-19 (principal); J01.90 Acute sinusitis, unspecified; H66.003 Acute suppurative otitis media without spontaneous rupture of ear drum, bilateral
CPT/HCPCS: 87880; 99202; G0463; U0003

== ENCOUNTER 2021-06-28 15:23 | Emergency (ER) | payer BC, SELFPAY ==
[2021-06-28 15:25] VITALS: PULSE 79; RESP 18; TEMP 36.9; O2SAT 100; BMI 38.7
--- NOTE | 2021-06-28 15:59 | HMH.EDUTC ---
[facility] [place] Disposition Clinical Impression: Exposure to COVID-19 virus Disposition: Home, Self-Care Condition on Discharge: Good Instructions: DI for COVID-19 (Suspected or Confirmed ), Preventing the Spread of Coronavirus Discharge Instructions Additional Instructions: *Monitor Temp, Over the counter Motrin or Tylenol as directed/as needed Tylenol every 4 hours and Motrin every 6 hours (as long as your family doctor has told you that you can take it) for fever or pain. and straight to ER if unable to lower temp less than 101.0 after medication given Follow up IMMEDIATELY for new or worsening symptoms or no Noticeable improvement over the next 48-72 hours. 911 for difficulty breathing or swallowing You were tested for today for COVID19 your test result should be back in the next 24-48 hours, you may call to the [facility] to see if your test results are back in the next 48 hours [phone] [facility] hours are 9am-9pm You was given a handout with instructions for Self Quarantine and Self isolation for while you wait on test results and what to do if they are positive If you are positive the Health Dept will be contacting you also Make sure to take your Vitamins Vit. C Vit D and Zinc if you can take them Referrals: Provider,Referral, MD [Primary Care Provider] - As needed Time of Disposition: 16:00 Medical Decision Making - Will Inquiry Pt receiving controlled substance: No Will was queried for this patient: No Vital Signs: 06/28/21 15:25 Temperature 98.4 F Temperature Source Oral Pulse Rate [Right Brachial] 79 Respiratory Rate 18 02 Sat by Pulse Oximetry 100 Oxygen Delivery Method Room Air Orders (Tests/Meds): ORDERS Category Date Time Status Covid-19 Nasal PCR ([facility]) Routine Lab 06/28/21 15:36 Received [facility] [place] HPI - General Stated complaint: covid test Time Seen by Provider: 06/28/21 16:00 Mode of Arrival: Ambulatory Source of Information: Patient Limitations: No Limitations Description of Symptoms (Recalled from Triage Doc. by RN): COVID TEST D/T EXPOSURE. DENIES SYMPTOMS HEENT Symptoms (Recalled from RN notes): No Resp Symptoms (Recalled from RN notes): No Skin Symptoms (Recalled from RN notes): No MS Symptoms (Recalled from RN notes): No Functional Status (Recalled from RN notes): WNL - History of Present Illness Provider Complaint: Patient states that she was recently around someone that has since tested positive for COVID States that she is not having any symptoms but has small baby at home and wanted to make sure she didnt have it - Related Data Previous Rx's Medication Instructions Recorded norgestimate 0.25 mg-ethinyl 1 tab PO DAILY #28 tab 06/27/21 estradiol 35 mcg tablet Allergies Allergy/AdvReac Type Severity Reaction Status Date / Time No Known Allergies Allergy Verified 06/27/21 11:06 - Worker's Comp Is this a Worker's Comp case?: No [facility] History - Hepatitis A Screen Drug use history?: No High risk sexual behaviors?: No History of sexually transmitted infection?: No Currently employed?: No Childcare worker?: No Do you have indoor plumbing?: Yes Do you have electricity?: Yes Attestation statement:: This patient has been screened for Hepatitis A risk factors. I have reviewed the patient's past medical history: Yes Medical History: Denies:: Cancer, Diabetes Mellitus Type 1, Diabetes Mellitus Type 2, Internal Pacemaker, MRSA, Seizures Other Medical History: Denies: Blood Transfusion Reaction Laterality Cases: Bilateral: Tonsillectomy Other Surgeries: Yes: Other. No: , Pacemaker Amputation: No Fractures: Yes (LEFT ARM, AND RIGHT ANKLE) Comment: I & D of perirectal abscess x2 - Social History Smoking Status: Never smoker Tobacco Type: cigarettes # Packs/Day (cigarettes): 1 Alcohol Intake: never Alcohol Intake Frequency:: a few times a month Substance Use Type: denies use, marijuana Occupational Status: other Housing: house Household Members: friend
[2021-06-28 16:02] VITALS: BP 00/00; PULSE 79; RESP 18; TEMP 36.9; O2SAT 100
== END 2021-06-28 16:06 | disposition home or self-care (01) ==
PROVIDERS: Emergency Provider Nurse Practitioner
DX: Z20.822 Contact with and (suspected) exposure to COVID-19 (principal)
CPT/HCPCS: 99202; G0463; U0003

== ENCOUNTER 2021-08-08 14:06 | Emergency (ER) | payer BC, SELFPAY ==
[2021-08-08 14:12] VITALS: BP 119/68; PULSE 92; RESP 18; TEMP 36.7; O2SAT 97; BMI 38.7
--- NOTE | 2021-08-08 14:22 | HMH.EDUTC ---
[facility] [place] Disposition Clinical Impression: UTI (urinary tract infection) Qualifiers: Urinary tract infection type: site unspecified Hematuria presence: with hematuria Qualified Code(s): N39.0 - Urinary tract infection, site not specified Low back strain Qualifiers: Encounter type: initial encounter Qualified Code(s): S39.012A - Strain of muscle, fascia and tendon of lower back, initial encounter Disposition: Home, Self-Care Condition on Discharge: Good Instructions: Low Back Pain (Alternative Therapy), DI for Urinary Tract Infection (UTI), Nitrofurantoin, Methocarbamol Additional Instructions: *Increase fluids. Water not Soda or Tea *Start antibiotic immediately and be sure to take as ordered for the FULL length of time although you should start to see improvement over the next 48 hours Be SURE to follow up anytime for new or worsening symptoms with your family doctor. AND in 48 hours for urine culture results with your family doctor, if you do not have a doctor then you may call back to the [facility] for urine culture results and further treatment. We do recommend that you choose and establish care with a Primary Care Physician. AND follow up with them in 10-14 days to repeat UA to ensure infection is resolved and blood no longer present *Be sure to let your PCP know that we sent urine cultures from the [facility] so they can follow up to ensure that you area the on the correct antibiotic Call your doctor office and make appointment for 48 hours (2 days from today) to follow up and get the results of your urine culture and further treatment *Ibuprofen as directed on package with meal as needed for pain/inflammation *Not additional anti-inflammatory like motrin, aleve, advil with the above amount of ibuprofen. You can still take Tylenol every 4 hours as needed if you need something else for pain *Ice 20 minutes every 2 hours for the first 48 hours after the initial injury followed by moist heat every 20 minutes 3-4 times a day to affected area *Muscle relaxer as prescribed as needed for muscle spasms but remember, it WILL cause drowsiness You cannot take it and drive, operate machinery or care for small children. *Keep this area active, no movement leads to more stiffness, However take it easy and avoid heavy lifting pushing or pulling *Follow up with you family doctor if no improvement for further treatment Prescriptions: Nitrofurantoin Monohyd/M-Cryst [Macrobid 100 mg Capsule] 100 mg PO BID 7 Days #14 cap Transmission Status: Pending to [facility] methocarbamoL [Methocarbamol 500mg Tablet] 500 mg PO BID PRN #10 tab PRN Reason: Muscle Spasm Transmission Status: Pending to [facility] Referrals: Provider,Referral, [Primary Care Provider] - As needed Time of Disposition: 14:42 Medical Decision Making - Will Inquiry Pt receiving controlled substance: No Will was queried for this patient: No Vital Signs: 08/08/21 14:12 08/08/21 14:33 Temperature 98.1 F 98.1 F Temperature Source Oral Pulse Rate 92 H Pulse Rate [Left] 92 H Respiratory Rate 18 18 Blood Pressure 119/68 Blood Pressure [Right Arm] 119/68 Blood Pressure Mean [Right Arm] 85 02 Sat by Pulse Oximetry 97 - Lab Data Lab results reviewed: Yes: I reviewed the patient's lab results. Lab Results 08/08/21 14:21: Urine Color Yellow, Urine Appearance Clear, Urine pH 6.0, Ur Specific [place] 1.025, Urine Protein 2+, Urine Glucose (UA) Negative, Urine Ketones Negative, Urine Blood 3+, Urine Nitrate Negative, Urine Bilirubin Negative, Urine Urobilinogen 1, Ur Leukocyte Esterase 1+ A 08/08/21 14:25: [facility] Negative Orders (Tests/Meds): ORDERS Category Date Time Status Urine Culture Stat Micro 08/08/21 14:28 Received Medical Decision Narrative: Patient report that she is currently on her menstrual period at this time [facility] [place] HPI - General Stated complaint: back pain, no accident Time Seen by Provider: 08/08/21 14:20
[2021-08-08 14:30] LABS: Apearance,Urine Clear (Clear); Color,Urine Yellow (Yellow); Specific Gravity, Urine 1.025 (1.005-1.030)
[2021-08-08 14:30] LABS: UTC Pregnancy Test, Urine Negative (Negative)
[2021-08-08 14:31] LABS: Bilirubin,Urine Negative (Negative); Blood, Urine 3+ (Negative); Glucose,Urine (UA) Negative (Negative); Ketones,Urine Negative (Negative); Protein,Urine 2+ (Negative); UTC Leukocyte Esterase,Urine 1+ (Negative); UTC Nitrate,Urine Negative (Negative); Urobilinogen,Urine 1 EU/dl (0.2)
[2021-08-08 14:33] VITALS: BP 119/68; PULSE 92; RESP 18; TEMP 36.7
== END 2021-08-08 14:46 | disposition home or self-care (01) ==
PROVIDERS: Emergency Provider Nurse Practitioner
DX: N30.00 Acute cystitis without hematuria (principal); S39.012A Strain of muscle, fascia and tendon of lower back, initial encounter
CPT/HCPCS: 81003; 81025; 87086; 87088; 87186; 99202; G0463

== ENCOUNTER 2021-10-08 00:41 | Emergency (ER) | payer BC, SELFPAY ==
[2021-10-08 00:51] VITALS: BP 00/00; PULSE 0; RESP 0; TEMP -17.7; TEMP 0
== END 2021-10-08 01:01 | disposition left against medical advice (07) ==
LOC: ER 00:53
PROVIDERS: Emergency Provider Emergency Medicine
DX: Z53.21 Procedure and treatment not carried out due to patient leaving prior to being seen by health care provider (principal)
CPT/HCPCS: 99211

== ENCOUNTER 2021-11-05 04:57 | Emergency (ER) | payer BC, SELFPAY ==
[2021-11-05 04:58] VITALS: BP 114/59; PULSE 86; RESP 16; TEMP 37; O2SAT 97; BMI 31.6
--- NOTE | 2021-11-05 05:26 | XR_ITS ---
PROCEDURE INFORMATION: Exam: XR Left Elbow Exam date and time: 11/05/2021 5:26 AM Age: 31 years old Clinical indication: Elbow; Left; Patient HX: C/O generalized pain; Additional info: Fall TECHNIQUE: Imaging protocol: XR Left elbow. Views: 3 or more views. COMPARISON: CR XR WRIST LT MIN 3V 11/05/2021 5:35 AM FINDINGS: Bones/joints: No acute bony injury or malalignment. Soft tissues: No radiopaque soft tissue foreign body. IMPRESSION: No acute bony injury or malalignment.
--- NOTE | 2021-11-05 05:26 | XR_ITS ---
PROCEDURE INFORMATION: Exam: XR Left Wrist Exam date and time: 11/05/2021 5:26 AM Clinical indication: Wrist; Left; Patient HX: C/O generalized pain; Additional info: Fall TECHNIQUE: Imaging protocol: XR Left wrist. Views: 3 or more views. COMPARISON: No relevant prior studies available. FINDINGS: Bones/joints: No acute bony injury or malalignment. Soft tissues: No radiopaque soft tissue foreign body. IMPRESSION: No acute bony injury or malalignment.
--- NOTE | 2021-11-05 05:26 | XR_ITS ---
PROCEDURE INFORMATION: Exam: XR Right Wrist Exam date and time: 11/05/2021 5:26 AM Age: 31 years old Clinical indication: Wrist; Right; Patient HX: C/O generalized pain; Additional info: Fall TECHNIQUE: Imaging protocol: XR Right wrist. Views: 3 or more views. COMPARISON: No relevant prior studies available. FINDINGS: Bones/joints: No acute bony injury or malalignment. Soft tissues: No radiopaque soft tissue foreign body. IMPRESSION: No acute bony injury or malalignment.
--- NOTE | 2021-11-05 05:26 | XR_ITS ---
PROCEDURE INFORMATION: Exam: XR Right Hand Exam date and time: 11/05/2021 5:26 AM Age: 31 years old Clinical indication: Hand; Right; Patient HX: C/O generalized pain; Additional info: Fall TECHNIQUE: Imaging protocol: XR Right hand. Views: 3 or more views. COMPARISON: No relevant prior studies available. FINDINGS: Bones/joints: No acute bony injury or malalignment. Soft tissues: No radiopaque soft tissue foreign body. IMPRESSION: No acute bony injury or malalignment.
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
[2021-11-05 05:39] LABS: Urine Pregnancy, HCG Qual. Negative (Negative)
--- NOTE | 2021-11-05 06:21 | HMH.EDGENADL ---
ED Disposition Clinical Impression: Left wrist sprain Qualifiers: Encounter type: initial encounter Qualified Code(s): S63.502A - Unspecified sprain of left wrist, initial encounter Sprain of hand Qualifiers: Encounter type: initial encounter Laterality: unspecified laterality Qualified Code(s): S63.90XA - Sprain of unspecified part of unspecified wrist and hand, initial encounter Disposition: Home, Self-Care Condition on Discharge: Good Instructions: DI for Wrist Sprain Additional Instructions: advil/tyenol and wear splint as needed Referrals: Provider,Referral, MD [Primary Care Provider] - - Critical Care Critical Care Time: No Attestation: On 11/05/21, the high probability of a clinically significant, sudden or life threatening deterioration of the following system(s) required my full and direct attention, intervention and personal management. The time I documented below is in addition to time spent performing reported procedures but includes the following listed in this critical care notation. Medical Decision Making - Medical Records Medical records reviewed: Yes: I reviewed the patient's medical records. - Will Inquiry Pt receiving controlled substance: No Vital Signs: 11/05/21 04:58 Temperature 98.6 F Temperature Source Oral Pulse Rate [Left] 86 Respiratory Rate 16 Blood Pressure [Right Arm] 114/59 L Blood Pressure Mean [Right Arm] 77 02 Sat by Pulse Oximetry 97 Oxygen Delivery Method Room Air - Lab Data Lab results reviewed: Yes: I reviewed the patient's lab results. Lab Results 11/05/21 05:20: Urine HCG, Qual Negative Orders (Tests/Meds): ORDERS Category Date Time Status XR elbow LT min 3V Stat Exams 11/05/21 05:26 Taken XR hand LT min 3V Stat Exams 11/05/21 05:26 Taken XR hand RT min 3V Stat Exams 11/05/21 05:26 Taken XR wrist LT min 3V Stat Exams 11/05/21 05:26 Taken XR wrist RT min 3V Stat Exams 11/05/21 05:26 Taken - Radiology Data #1 Image(s): Elbow, Wrist, Hand Image Reviewed: Yes I reviewed the patient's radiology image Preliminary Findings: No Fracture Seen Medical Decision Narrative: fall with acute sprain w/o fx seen - discussed with pt about safety - pt reports understands and has matter under control General Adult HPI - General Chief complaint: PAIN Stated complaint: Pain in both hands;Jammed fingers Fall Time Seen by Provider: 11/05/21 05:15 Mode of Arrival: Ambulatory Source of Information: Patient Limitations: No Limitations Description of Symptoms (Recalled from ER Triage Doc. by RN): pt reports pain in her hands the left index and middle finger that radiates to the elbow and right index finger to the palm - History of Present Illness HPI narrative: acute injury to lt and rt hand after fall - no other c/o at this time Onset (ago): hour(s) Location: upper extremity Severity: moderate Associated symptoms: denies other symptoms Treatments prior to arrival: none - Related Data Previous Rx's Medication Instructions Recorded norgestimate 0.25 mg-ethinyl 1 tab PO DAILY #28 tab 06/27/21 estradiol 35 mcg tablet Nitrofurantoin Monohyd/M-Cryst 100 mg PO BID 7 Days #14 cap 08/08/21 [Macrobid 100 mg Capsule] methocarbamoL [Methocarbamol 500mg 500 mg PO BID PRN #10 tab 08/08/21 Tablet] Allergies Allergy/AdvReac Type Severity Reaction Status Date / Time No Known Allergies Allergy Verified 06/27/21 11:06 [facility] History - Hepatitis A Screen Drug use history?: No High risk sexual behaviors?: No History of sexually transmitted infection?: No Currently employed?: No Childcare worker?: No Do you have indoor plumbing?: Yes Do you have electricity?: Yes Attestation statement:: This patient has been screened for Hepatitis A risk factors. I have reviewed the patient's past medical history: Yes Medical History: Denies:: Cancer, Diabetes Mellitus Type 1, Diabetes Mellitus Type 2, Internal Pacemaker, MRS
--- NOTE | 2021-11-05 07:29 | PC.NURSE ---
Spoke with benjamín from [facility]. She stated that since the patient is stable [facility] is unable to move up into the system to be read faster. She stated that there was no estimated time of being jasper.
--- NOTE | 2021-11-05 07:35 | PC.NURSE ---
Pt is sitting comfortably in bed.
[2021-11-05 07:49] VITALS: BP 130/82; PULSE 89; RESP 18; TEMP 37; O2SAT 98
== END 2021-11-05 07:49 | disposition home or self-care (01) ==
PROVIDERS: Emergency Provider Emergency Medicine
DX: S63.502A Unspecified sprain of left wrist, initial encounter (principal); W01.0XXA Fall on same level from slipping, tripping and stumbling without subsequent striking against object, initial encounter; Y92.019 Unspecified place in single-family (private) house as the place of occurrence of the external cause
CPT/HCPCS: 29125; 73080; 73110; 73130; 81025; 99283

== ENCOUNTER 2021-11-24 09:40 | Emergency (ER) | payer BC, SELFPAY ==
[2021-11-24 09:41] VITALS: BP 97/64; PULSE 89; RESP 16; TEMP 36.6; O2SAT 98; BMI 37.1
--- NOTE | 2021-11-24 09:53 | HMH.EDGENADL ---
ED Disposition Clinical Impression: Threatened Qualifiers: Weeks of gestation: less than 8 weeks Qualified Code(s): Z3A.01 - Less than 8 weeks gestation of Disposition: Home, Self-Care Condition on Discharge: Good Instructions: DI for Threatened Additional Instructions: No strenuous activity, no sexual intercourse for 2 days. Follow-up with Dr. Coronado in the office, call Thursday to make appointment. Return to the emergency department if any severe bleeding or pain. Referrals: Provider,Referral, [Primary Care Provider] - - Critical Care Critical Care Time: No Attestation: On 11/24/21, the high probability of a clinically significant, sudden or life threatening deterioration of the following system(s) required my full and direct attention, intervention and personal management. The time I documented below is in addition to time spent performing reported procedures but includes the following listed in this critical care notation. Medical Decision Making - Medical Records Medical records reviewed: Yes: I reviewed the patient's medical records. MR Comment: Reviewed prior labs and blood bank. Negative test here on 11/05/2021. Blood type O+. - Will Inquiry Pt receiving controlled substance: No Vital Signs: 11/24/21 09:41 11/24/21 11:28 Temperature 97.8 F Temperature Source Oral Pulse Rate 67 Pulse Rate [Right Radial] 89 Respiratory Rate 16 18 Blood Pressure 109/73 L Blood Pressure [Right Arm] 97/64 L Blood Pressure Mean [Right Arm] 75 Blood Pressure Source Automatic Cuff Blood Pressure Source [Right Arm] Automatic Cuff Blood Pressure Position Sitting Blood Pressure Position [Right Arm] Sitting 02 Sat by Pulse Oximetry 98 97 Oxygen Delivery Method Room Air Room Air - Lab Data Lab Results 11/24/21 09:55: WBC 6.3, RBC 4.29, Hgb 13.0, Hct 39.8, MCV 92.8, MCH 30.4, MCHC 32.7, RDW 14.0, Plt Count 238, MPV 7.2 L, Neut % (Auto) 65.9, Lymph % (Auto) 27.6, [place] % (Auto) 4.2, Eos % (Auto) 1.0, Baso % (Auto) 1.3, Neut # (Auto) 4.1, Lymph # (Auto) 1.7, [place] # (Auto) 0.3, Eos # (Auto) 0.1, Baso # (Auto) 0.1 11/24/21 09:55: HCG, Quant 02200 H 11/24/21 09:55: Serum HCG, Qual Positive Result diagrams: 11/24/21 09:55 Orders (Tests/Meds): ORDERS Category Date Time Status US OB transvaginal Stat Ultrasound 11/24/21 11:03 Taken - US Data US Images: Pelvis Findings Narrative: As per [facility] procedure, ultrasound report received from quality assurance qa lab technician: 6-week intrauterine with cardiac activity, no abnormality seen. General Adult HPI - General Stated complaint: positive test 0106, spotting Time Seen by Provider: 11/24/21 09:54 - History of Present Illness HPI narrative: Complains of bleeding in . Says that she did a home test the other day and it was positive. This morning she began having spotting without pain. She is now 2, para 1. She does not remember when her last menses was, she says sometime before [place] but she is not sure if it was 1 week before or maybe 3 [address] She sees Dr. Coronado. - Related Data Previous Rx's Medication Instructions Recorded norgestimate 0.25 mg-ethinyl 1 tab PO DAILY #28 tab 06/27/21 estradiol 35 mcg tablet Nitrofurantoin Monohyd/M-Cryst 100 mg PO BID 7 Days #14 cap 08/08/21 [Macrobid 100 mg Capsule] methocarbamoL [Methocarbamol 500mg 500 mg PO BID PRN #10 tab 08/08/21 Tablet] Allergies Allergy/AdvReac Type Severity Reaction Status Date / Time No Known Allergies Allergy Verified 06/27/21 11:06 [facility] History - Hepatitis A Screen Attestation statement:: This patient has been screened for Hepatitis A risk factors. I have reviewed the patient's past medical history: Yes Medical History: Denies:: Cancer, Diabetes Mellitus Type 1, Diabetes Mellitus Type 2, Internal Pacemaker, MRSA, Seizures Other Med
[2021-11-24 10:12] LABS: Basophils # 0.1 K/mm3 (0-0.2); Basophils % 1.3 % (0.1-2.0); Eosinophils # 0.1 K/mm3 (0.0-0.4); Hematocrit 39.8 % (37.0-47.0); Lymphocytes # 1.7 K/mm3 (0.7-4.5); Lymphocytes % 27.6 % (10-50); Mean Corpuscular HGB Conc 32.7 g/dL (31.8-35.4); Mean Corpuscular Hemoglobin 30.4 pg (27.0-31.2); Mean Corpuscular Volume 92.8 fl (81-99); Mean Platelet Volume 7.2 fl (7.4-10.4); Monocytes # 0.3 K/mm3 (0.1-1.0); Monocytes % 4.2 % (1.7-9.3); Neutrophils # 4.1 K/mm3 (1.8-7.8); Neutrophils % 65.9 % (37.0-80.0); Platelet Count 238 K/mm3 (142-424); Red Blood Count 4.29 M/mm3 (4.20-5.40); White Blood Count 6.3 K/mm3 (4.8-10.8)
[2021-11-24 11:01] LABS: HCG,Quantitative 16235 mIU/ml (0-5.42)
--- NOTE | 2021-11-24 11:03 | US_ITS ---
PROCEDURE INFORMATION: Exam: US , Transvaginal Exam date and time: 11/24/2021 11:03 AM Age: 31 years old Clinical indication: Lmp or gestational age (in weeks): 6 w 0 d; Antepartum complications; Bleeding; ; Prior surgery; Surgery date: 6+ months; Surgery type: ; Additional info: Bleeding, , R/O ectopic TECHNIQUE: Imaging protocol: Real-time transvaginal obstetrical ultrasound of the maternal pelvis with image documentation. Transvaginal imaging was used for better evaluation of the fetus, adnexa, and/or cervix. COMPARISON: US OB FOLLOW UP 11/27/2020 3:04 PM FINDINGS: Gestation: Single live intrauterine gestation. heart rate: heart tone measures 127 bpm. BIOMETRY: Gestational age (AUA): [place]-rump length measures 0.31 cm yielding estimated gestational age 6 weeks. MATERNAL: Right ovary/adnexa: Right ovary unremarkable. Left ovary/adnexa: Corpus luteal cyst on the left measures 2.0 x 1.8 x 2.2 cm. IMPRESSION: Single live intrauterine gestation. [place]-rump length measures 0.31 cm yielding estimated gestational age 6 weeks.
--- NOTE | 2021-11-24 11:07 | PC.NURSE ---
contacted rad for u/s orders, states they will call staff in
[2021-11-24 11:08] LABS: HCG Qualitative, Serum Positive (Negative)
--- NOTE | 2021-11-24 11:25 | PC.NURSE ---
pt states no needs at this time
[2021-11-24 11:28] VITALS: BP 109/73; PULSE 67; RESP 18; O2SAT 97
--- NOTE | 2021-11-24 12:18 | PC.NURSE ---
pt to ultrasound
--- NOTE | 2021-11-24 12:42 | PC.NURSE ---
pt return from ultrasound, rad staff gave verbal report to TABBY REDDING
[2021-11-24 13:27] VITALS: BP 124/73; PULSE 74; RESP 16; TEMP 36.6; O2SAT 100
== END 2021-11-24 13:27 | disposition home or self-care (01) ==
PROVIDERS: Emergency Provider Emergency Medicine
DX: O20.0 Threatened abortion (principal)
CPT/HCPCS: 76817; 84702; 84703; 85025; 99283

== ENCOUNTER → 2021-11-29 11:28 | Outpatient (CLI) | payer BC, SELFPAY | PROVIDERS: Visit Provider Nurse Practitioner Obstetrics & Gynecology | DX: N92.6 Irregular menstruation, unspecified (principal) | CPT/HCPCS: 36415; 84702 ==

== ENCOUNTER → 2021-12-01 09:54 | Outpatient (CLI) | payer BC, SELFPAY ==
[2021-12-01 12:11] LABS: HCG,Quantitative 45691 mIU/ml (0-5.42)
== END ==
PROVIDERS: Visit Provider Nurse Practitioner Obstetrics & Gynecology
DX: Z34.90 Encounter for supervision of normal pregnancy, unspecified, unspecified trimester (principal)
CPT/HCPCS: 36415; 84702

== ENCOUNTER → 2021-12-02 13:47 | Outpatient (CLI) | payer BC, SELFPAY ==
--- NOTE | 2021-12-02 13:52 | US_ITS ---
FINAL REPORT CLINICAL HISTORY: Spotting in early -confirmation FINDINGS: TRANSABDOMINAL ULTRASOUND, Single intrauterine is present. Cardiac activity is confirmed at 136 beats per minute. The ovaries are unremarkable. Growth parameters are as follows: CRL: 1.1 cm consistent with 7 weeks 2 days. IMPRESSION: Single living IUP with estimated gestational age of 7 weeks 2 days. Reviewed, Interpreted and Dictated by Devon Varela III, MD Transcribed by Jorden Hawkins Authenticated by Devon Varela III, MD on 12/02/2021 03:10:26 PM [facility]
== END ==
PROVIDERS: Visit Provider Nurse Practitioner Obstetrics & Gynecology
DX: O26.841 Uterine size-date discrepancy, first trimester (principal); O26.859 Spotting complicating pregnancy, unspecified trimester
CPT/HCPCS: 76801

== ENCOUNTER 2022-02-06 10:59 | Emergency (ER) | payer BC, SELFPAY ==
[2022-02-06 12:50] VITALS: PULSE 111; RESP 20; TEMP 36.9; O2SAT 99; BMI 38.7
[2022-02-06 13:21] LABS: Strep Scrn Group A (Rapid) Negative (Negative)
--- NOTE | 2022-02-06 13:33 | HMH.EDUTC ---
[facility] [place] Clinical Impression: Viral upper respiratory illness Disposition: Home, Self-Care Condition on Discharge: Good Instructions: Sore Throat Additional Instructions: *Monitor Temp, Over the counter Motrin or Tylenol as directed/as needed Tylenol every 4 hours and Motrin every 6 hours (as long as your family doctor has told you that you can take it) for fever or pain. and straight to ER if unable to lower temp less than 101.0 after medication given *Warm salt water gargles may help to soothe the throat *Throat Lozenges *Warm fluids like tea with honey may help to soothe the throat *Sleep elevated *Humidifier/Vaporizer Follow up IMMEDIATELY for new or worsening symptoms or no Noticeable improvement over the next 48-72 hours. 911 for difficulty breathing or swallowing Referrals: Provider,Referral, MD [Primary Care Provider] - As needed Time of Disposition: 13:44 Medical Decision Making - Will Inquiry Pt receiving controlled substance: No Will was queried for this patient: No Vital Signs: 02/06/22 12:50 Temperature 98.4 F Temperature Source Oral Pulse Rate [Right] 111 H Respiratory Rate 20 02 Sat by Pulse Oximetry 99 Oxygen Delivery Method Room Air - Lab Data Lab results reviewed: Yes: I reviewed the patient's lab results. Lab Results 02/06/22 12:55: Group A Strep Rapid Negative Orders (Tests/Meds): ORDERS Category Date Time Status Strep Screen Confirmation Stat Micro 02/06/22 12:55 [place] [facility] [place] - General Stated complaint: sore throat, cough, h/a Time Seen by Provider: 02/06/22 13:34 Mode of Arrival: Ambulatory Source of Information: Patient Limitations: No Limitations Description of Symptoms (Recalled from Triage Doc. by RN): PATIENT C/O COUGH, SORE THROAT AND CONGESTION X 2 DAYS HEENT Symptoms (Recalled from RN notes): Yes Resp Symptoms (Recalled from RN notes): Yes Skin Symptoms (Recalled from RN notes): No MS Symptoms (Recalled from RN notes): No Functional Status (Recalled from RN notes): WNL - History of Present Illness Provider Complaint: Patient states she has been having sore throat and nasal congestion for several days States that today her throat was hurting worse so she came in to get tested for strep throat - Related Data Previous Rx's Medication Instructions Recorded prenat.vits,peyman,pri-slkt-ojnox 1 tab PO DAILY #90 tab 01/01/22 Allergies Allergy/AdvReac Type Severity Reaction Status Date / Time No Known Allergies Allergy Verified 01/31/22 08:51 - Worker's Comp Is this a Worker's Comp case?: No [facility] History - Hepatitis A Screen Drug use history?: No High risk sexual behaviors?: No History of sexually transmitted infection?: No Currently employed?: No Childcare worker?: No Do you have indoor plumbing?: Yes Do you have electricity?: Yes Attestation statement:: This patient has been screened for Hepatitis A risk factors. I have reviewed the patient's past medical history: Yes Medical History: Denies:: Cancer, Diabetes Mellitus Type 1, Diabetes Mellitus Type 2, Internal Pacemaker, MRSA, Seizures Other Medical History: Denies: Blood Transfusion Reaction Laterality Cases: Bilateral: Tonsillectomy Other Surgeries: Yes: No Previous Surgery, Other. No: , Pacemaker Amputation: No Fractures: Yes (LEFT ARM, AND RIGHT ANKLE) Comment: I & D of perirectal abscess x2 - Social History Smoking Status: Never smoker Tobacco Type: cigarettes # Packs/Day (cigarettes): 1 Alcohol Intake: never Alcohol Intake Frequency:: a few times a month Substance Use Type: denies use, marijuana Occupational Status: other Housing: house Household Members: friend(s) Family Hx:: Hypertension, Hyperlipidemia ROS Obtained: Yes All systems reviewed & no additional complaints, Yes Systems reviewed as appropriate & no additional complaints - ENT Ears, Nose, Mouth, and Throat: Reports system reviewed and no additional complaints, except as
[2022-02-06 13:46] VITALS: BP 0/0; PULSE 111; RESP 20; TEMP 36.9; O2SAT 99
== END 2022-02-06 13:54 | disposition home or self-care (01) ==
PROVIDERS: Emergency Provider Nurse Practitioner
DX: J06.9 Acute upper respiratory infection, unspecified (principal); Z82.49 Family history of ischemic heart disease and other diseases of the circulatory system; Z83.438 Family history of other disorder of lipoprotein metabolism and other lipidemia
CPT/HCPCS: 87430; 99213; G0463

== ENCOUNTER → 2022-03-04 12:56 | Outpatient (CLI) | payer BC, SELFPAY ==
--- NOTE | 2022-03-04 12:56 | US_ITS ---
FINAL REPORT CLINICAL HISTORY: US OB Complete 20wk+ Anatomy Scan FINDINGS: There is a single live intrauterine gestation. Presentation is cephalic. Placenta is anterior, high, grade 1. movement is noted. Heart rate is measured at 155 beats per minute. Three-vessel cord with satisfactory umbilical cord insertion. Four-chamber heart is noted. brain and ventricles are unremarkable. Chest and diaphragm are unremarkable. ABDOMEN: Both kidneys and urinary bladder are unremarkable. Stomach is unremarkable. SPINE: No anomalies identified. Both arms and legs noted. AMNIOTIC FLUID: Appropriate amount. MEASUREMENTS: ULTRASOUND AGE: 20 weeks 4 days. GESTATION AGE: 20 weeks 3 days. ESTIMATED WEIGHT: 359 g GROWTH PERCENTILE: 50% BPD: 4.8 cm corresponding with 20 weeks 5 days. OFD: 6.2 cm corresponding with 20 weeks 5 days. HC: 17.4 cm corresponding with 20 weeks 0 days. AC: 15.3 cm corresponding with 20 weeks 4 days. FL: 3.4 cm corresponding with 20 weeks 5 days. CEREBELLUM: 2.0 cm corresponding with 20 weeks 4 days. HUMERUS: 3.2 cm corresponding with 20 weeks 5 days. HC/AC: 1.14 CI: 78% FL/BPD: 71% FL/AC: 22% IMPRESSION: Single living IUP with an ultrasound age of 20 weeks 4 days. No anomalies noted. Reviewed, Interpreted and Dictated by Devon Varela III, MD Transcribed by Connie Goode Authenticated by Devon Varela III, MD on 03/04/2022 03:16:50 PM [facility]
== END ==
PROVIDERS: Visit Provider Nurse Practitioner Obstetrics & Gynecology
DX: Z36.0 Encounter for antenatal screening for chromosomal anomalies (principal)
CPT/HCPCS: 76811

== ENCOUNTER → 2022-05-24 09:19 | Outpatient (CLI) | payer BC, SELFPAY ==
[2022-05-24 09:49] LABS: Basophils % 0.2 % (0.1-2.0); Eosinophils # 0.1 K/mm3 (0.0-0.4); Eosinophils % 0.7 % (0.1-12.0); Hematocrit 33.1 % (37.0-47.0); Hemoglobin 11.8 g/dL (12.2-16.2); Lymphocytes # 2.1 K/mm3 (0.7-4.5); Lymphocytes % 22.5 % (10-50); Mean Corpuscular HGB Conc 35.7 g/dL (31.8-35.4); Mean Corpuscular Volume 86.8 fl (81-99); Mean Platelet Volume 7.5 fl (7.4-10.4); Monocytes # 0.7 K/mm3 (0.1-1.0); Monocytes % 7.7 % (1.7-9.3); Neutrophils # 6.4 K/mm3 (1.8-7.8); Neutrophils % 68.9 % (37.0-80.0); Platelet Count 321 K/mm3 (142-424); Red Blood Count 3.81 M/mm3 (4.20-5.40); Red Cell Distribution Width 12.7 % (11.5-17.5); White Blood Count 9.3 K/mm3 (4.8-10.8)
[2022-05-24 10:26] LABS: Glucose,Fasting 90 mg/dl (74-100)
[2022-05-24 11:30] LABS: Glucose 1 Hour 152 mg/dL (74-100)
[2022-05-25 07:18] LABS: Rubella Antibodies, IgG 2.82 index (Immune >0.99)
[2022-05-25 09:09] LABS: HIV Screen 4th Generation wRfx Non Reactive (Non Reactive); Hepatitis B Surface Antigen Negative (Negative); Hepatitis C Antibody <0.1 s/co ratio (0.0-0.9)
[2022-05-25 10:08] LABS: HSV 2 IgG, Type Spec <0.91 index (0.00-0.90); Rapid Plasma Reagin Ab Titer Non Reactive (NonRea<1:1)
== END ==
PROVIDERS: Visit Provider Nurse Practitioner Obstetrics & Gynecology
DX: Z34.90 Encounter for supervision of normal pregnancy, unspecified, unspecified trimester (principal)
CPT/HCPCS: 36415; 82951; 85025; 86592; 86695; 86703; 86762; 86790; 86850; 87340; 87380; G0432

== ENCOUNTER → 2022-05-31 08:19 | Outpatient (CLI) | payer BC, SELFPAY ==
[2022-05-31 09:13] LABS: Glucose,Fasting 89 mg/dl (74-100)
[2022-05-31 10:33] LABS: Glucose 1 Hour 167 mg/dL (74-100)
[2022-05-31 11:27] LABS: Glucose 2 Hour 145 mg/dL (74-100)
[2022-05-31 12:29] LABS: Glucose 3 Hour 92 mg/dL (74-100)
== END ==
PROVIDERS: Visit Provider Nurse Practitioner Obstetrics & Gynecology
DX: Z34.90 Encounter for supervision of normal pregnancy, unspecified, unspecified trimester (principal)
CPT/HCPCS: 36415; 82951

== ENCOUNTER → 2022-07-02 06:17 | Outpatient (CLI) | payer BC, SELFPAY | PROVIDERS: Visit Provider Nurse Practitioner Obstetrics & Gynecology | DX: Z34.90 Encounter for supervision of normal pregnancy, unspecified, unspecified trimester (principal) | CPT/HCPCS: 86403 ==

== ENCOUNTER → 2022-07-09 14:48 | Outpatient (CLI) | payer BC, SELFPAY ==
[2022-07-09 15:42] LABS: Basophils # 0.1 K/mm3 (0-0.2); Basophils % 0.6 % (0.1-2.0); Eosinophils % 0.3 % (0.1-12.0); Hematocrit 36.2 % (37.0-47.0); Hemoglobin 11.6 g/dL (12.2-16.2); Lymphocytes # 1.6 K/mm3 (0.7-4.5); Lymphocytes % 19.5 % (10-50); Mean Corpuscular HGB Conc 32.1 g/dL (31.8-35.4); Mean Corpuscular Hemoglobin 28.8 pg (27.0-31.2); Mean Corpuscular Volume 89.8 fl (81-99); Mean Platelet Volume 8.7 fl (7.4-10.4); Monocytes # 0.3 K/mm3 (0.1-1.0); Monocytes % 3.5 % (1.7-9.3); Neutrophils # 6.2 K/mm3 (1.8-7.8); Platelet Count 259 K/mm3 (142-424); Red Blood Count 4.03 M/mm3 (4.20-5.40); Red Cell Distribution Width 13.6 % (11.5-17.5); White Blood Count 8.2 K/mm3 (4.8-10.8)
[2022-07-09 16:13] LABS: Alanine Aminotransferase 15 U/L (12-78); Albumin Level 3.1 g/dl (3.5-5.0); Albumin/Globulin Ratio 1.1 (1.1-1.8); Alkaline Phosphatase 141 U/L (38-126); Anion Gap 8.9 mEq/L (5-15); Aspartate Amino Transferase 20 U/L (14-36); Blood Urea Nitrogen 8 mg/dl (7-17); Calcium 8.7 mg/dl (8.4-10.2); Carbon Dioxide 21 mmol/L (22.0-30.0); Chloride 107 mmol/L (98-107); Estimated Glomerular Filt Rate 144 ml/min (>60); GFR (African American) 174 ML/MIN (>60); Globulin 2.9 g/dL (1.3-3.2); Glucose 132 mg/dl (74-100); Potassium 3.9 mmoL/L (3.5-5.1); Sodium 133 mmol/L (136-145)
[2022-07-09 17:08] LABS: Bilirubin,Total < 0.1 mg/dl (0.2-1.3)
== END ==
PROVIDERS: Visit Provider Nurse Practitioner Obstetrics & Gynecology
DX: N92.0 Excessive and frequent menstruation with regular cycle (principal); Z34.90 Encounter for supervision of normal pregnancy, unspecified, unspecified trimester
CPT/HCPCS: 36415; 80053; 85025; C9803; U0003; U0005

== ENCOUNTER 2022-07-11 04:56 | Inpatient (IN) | payer BC, SELFPAY ==
[2022-07-11 04:59] VITALS: BMI 45.5
[2022-07-11 05:15] VITALS: BP 135/73; PULSE 80; RESP 18; TEMP 36.6; O2SAT 96; BMI 45.5
[2022-07-11 05:54] LABS: Coronavirus 19, PCR Not Detected (NotDetected); Influenza A, PCR Not Detected (NotDetected); Influenza B, PCR Not Detected (NotDetected); Microscopic, Urine URINE MICROSCOPIC (MICROSCOPIC)
[2022-07-11 06:20] LABS: Appearance,Urine SL CLOUDY (Clear); Bilirubin,Urine Negative (Negative); Blood, Urine Negative (Negative); Color,Urine YELLOW (Yellow); Glucose,Urine (UA) Negative (Negative); Ketones,Urine Negative (Negative); Leukocyte Esterase,Urine Negative (Negative); Nitrate,Urine Negative (Negative); Protein,Urine TRACE (Negative); Specific Gravity, Urine >= 1.030 (1.005-1.030); Urobilinogen,Urine 0.2 EU/dl (0.2)
[2022-07-11 07:03] LABS: Bacteria,Urine 1+ /lpf; Calcium Oxalate Crystals,Urine 1+ /lpf
[2022-07-11 07:08] LABS: POC Glucose,Bedside 79 (70-110)
--- NOTE | 2022-07-11 07:46 | HMH.PHAINT1 ---
Pharmacy Intervention Comments: MEDICATION RECONCILIATION COMPLETED ON PATIENT USING EXTERNAL FILL HISTORY FROM PHARMACY. -MELANIE PONCE, KIMMIED
--- NOTE | 2022-07-11 08:05 | SUR.OPER ---
TOB 0754 9014-Methergine IM administered per R. Feeback [place] to left thigh.
[2022-07-11 08:35] VITALS: BP 128/67; PULSE 112; RESP 16; TEMP 36.8; O2SAT 98
[2022-07-11 08:45] VITALS: BP 128/77; PULSE 81; RESP 16; TEMP 36.8; O2SAT 98
--- NOTE | 2022-07-11 08:47 | EXP.ANES.CKL ---
PFSH PFSH Social History Smoking Status: Former smoker second hand exposure: No alcohol intake: never substance use type: denies use and marijuana current occupational status: employed Travel in the last 8 weeks: None household members: friend(s) housing: house current occupation: [employer] current occupational exposures/hazards: No caffeine: No
--- NOTE | 2022-07-11 08:50 | P.PNANES_ITS ---
[facility] Anesthesia Record Part I Anesthesia Record I Intake, IV Amount: 2,000 Estimated blood loss (mL): 600 Urine output (mL): 50 Blood Pressure: 128/67 SaO2: 98 Pulse Rate: 112 Respiratory Rate: 16 Temperature: 98.2 F Patient is:: Awake and Stable Stable to PACU at:: 08:35
[2022-07-11 08:51] VITALS: BP 128/67; PULSE 112; RESP 16; TEMP 36.8; O2SAT 98
[2022-07-11 08:55] VITALS: BP 128/90; PULSE 79; RESP 14; TEMP 36.8; O2SAT 98
--- NOTE | 2022-07-11 08:59 | EXP.OP.NOTE ---
Date of procedure: 07/11/22 Pre-op Diagnosis:: Term , previous section Post-op Diagnosis:: Term , previous section, uterine atony Procedure performed:: Repeat lower segment transverse section and B coleman suture Surgeon:: Kashif Coronado MD Web Pressman(s):: Dr. Pelaez PACKER:: Azam Mejia Anesthesia: spinal Estimated blood loss (mL): 600 Clinical Note:: She is a 31-year-old 2 para 1 at 39 weeks gestational age. She had a previous section and as result of that was offered repeat lower segment transverse section at term. Operative findings:: She delivered a liveborn male child with Apgars of 8 at 1 minute and 9 at 5 minutes. Baby weighed 7 pounds 9 ounces. Ovaries and tubes appeared normal. Uterus appeared normal. Operative note:: She was taken to the operating room where spinal anesthesia was found be adequate. She was prepped and draped in normal sterile fashion in the supine position with a leftward tilt. A Ortega catheter was in the bladder. A Pfannenstiel skin incision was made with knife then carried through to the underlying layer of fascia with cautery. The fascia was opened in the midline with cautery and extended laterally using Rosenberg scissors. Arina clamps were applied to the superior aspect of the fascial incision which was tented up and the underlying rectus muscles dissected off using cautery. The Colgate clamps were then applied to the inferior aspect of the fascial incision which in a similar fashion was tented up and the underlying rectus muscles dissected off using cautery. The rectus muscles were then in the midline, the peritoneum identified, and entered sharply with Metzenbaum scissors. This incision was then extended superiorly and inferiorly with cautery. We had good visualization of the bladder inferiorly. The bladder peritoneum was then opened in the midline and extended laterally using Metzenbaum scissors. A bladder flap was created digitally. I inserted an Roni retractor. Transverse incision was made through the uterine muscle to the amnion. This incision was then extended laterally using fingers traction. The amnion was entered sharply with knife. There was clear amniotic fluid. The 's head was then delivered atraumatically. This was followed by the anterior shoulder and the rest of the infant's body atraumatically. The oropharynx and nasopharynx were bulb suctioned. The was vigorous so we allowed the cord to continue to pulsate for approximately 1 minute. The cord was then doubly clamped and cut. The infant was then handed off to Dr. Leslie who assigned Apgars of 8 at 1 minute and 9 at 5 minutes. We then obtained cord blood. Using gentle traction on the cord and countertraction on the fundus I was able to easily deliver the placenta intact. It had a normal three-vessel cord. The uterus was then cleared of clots and debris . The uterine incision was then closed using running 0 Vicryl suture in a locked fashion. A second layer of the same suture was used to imbricate the first layer. The bladder peritoneum was then closed using running 2-0 Vicryl suture in a locked fashion. The gutters and cul-de-sac were then cleared of clots and debris . Once again hemostasis was assured. The uterus was then returned to the abdominal cavity. The peritoneum was grasped with Aurora clamps and closed using running 2-0 Vicryl suture. The rectus muscles were then reapproximated using running 0 Vicryl suture. The fascia was closed using running #1 Vicryl suture. The subcutaneous tissues were then irrigated with warm water followed by closure Rachel's fascia using running 2-0 Monocryl suture. Rachel's fascia was then closed in 2 layers. The skin with Hibiclens and the incision was closed with 2-0 Monocryl barbed suture. I then cleaned the skin with Hibiclens. Sterile dressings were applied. We then performed a T AP block with anesthesia. She tolerated the pr
[2022-07-11 09:05] VITALS: BP 121/70; PULSE 87; RESP 14; TEMP 36.8; O2SAT 98
--- NOTE | 2022-07-11 09:06 | SUR.PHASEI ---
0835- baby to stay in pacu with pt with OB team. Pt beginning to breastfeed at this time. 0905- detailed report given to kayden espinoza in pacu. pt in stable condition
[2022-07-11 09:40] LABS: Microscopic,Cath URINE MICROSCOPIC (MICROSCOPIC)
[2022-07-11 09:52] LABS: Appearance,Urine/Cath CLEAR (Clear); Bilirubin,Cath Negative (Negative); Blood, Urine/Cath Negative (Negative); Color,Urine/Cath YELLOW (Yellow); Glucose,Urine/Cath (UA) Negative (Negative); Ketones,Urine/Cath Negative (Negative); Leukocyte Esterase,Cath Negative (Negative); Nitrate,Cath Negative (Negative); Protein,Urine/Cath Negative (Negative); Specific Gravity, Urine/Cath 1.025 (1.005-1.030); Urobilinogen,Cath 0.2 EU/dl (0.2)
[2022-07-11 10:03] LABS: Bacteria,Urine/Cath TRACE /lpf; Squamous Epithelial Ur./Cath Occasional #/hpf (0-5)
--- NOTE | 2022-07-11 11:22 | EXP.OB.APHP ---
OB - H&P: HPI Antepartum History of Present Illness Chief complaint: Term , previous section, admission for repeat lower segme History of present illness: She is a 31-year-old 2 para 1 at 39 weeks gestational age. She had a previous section and is admitted for repeat lower segment transverse section at term. History of Present Criteria for establishing EDC:: LMP confirmed by 1st trimester US care: good care Ultrasounds: normal 1st trimester US and normal mid trimester US Obstetrical complications: previous [facility] Surgical History (Updated 07/11/22 @ 11:24 by Kashif Coronado MD) History of Social History Smoking Status: Former smoker second hand exposure: No alcohol intake: never substance use type: denies use and marijuana current occupational status: employed Travel in the last 8 weeks: None household members: friend(s) housing: house current occupation: [employer] current occupational exposures/hazards: No caffeine: No Review of Systems Review of Systems Review of systems:: pertinent systems reviewed and negative unless documented below Meds Home Medications and Allergies Home Medications Medication Instructions Recorded Confirmed Type cyclobenzaprine 5 mg tablet 5 mg PO TIDP PRN Muscle Spasm 07/11/22 07/11/22 History ferrous sulfate 325 mg (65 mg 325 mg PO DAILY Supplement 07/11/22 07/11/22 History iron) tablet prenat.vits,peyman,wnr-osxz-wzpmi 1 tab PO DAILY Supplement 07/11/22 07/11/22 History New Prescriptions to Start Prescriptions: Allergies Allergy/AdvReac Type Severity Reaction Status Date / Time No Known Allergies Allergy Verified 07/08/22 09:39 OB - H&P: Exam Physical Exam Vital signs: Temp Pulse Resp BP Pulse Ox 98.2 F 87 14 121/70 98 07/11/22 09:05 07/11/22 09:05 07/11/22 09:05 07/11/22 09:05 07/11/22 09:05 Constitutional no acute distress Routine HEENT Exam Head: Present normocephalic Eye: Present EOMI ENT: Present mucous membranes moist Routine Neck Exam Present supple Routine Chest/Breast/Axilla Exam Chest wall: Absent tenderness Routine Respiratory Exam Present normal respiratory effort and symmetric chest movement; Absent accessory muscle use Routine Cardiovascular Exam Present RRR Routine Abdominal Exam Present soft; Absent tenderness Routine Rectal Exam Patient deferred: visual exam Routine Exam Patient deferred: external exam Routine Extremities Exam Present full ROM; Absent cyanosis Routine Back/Spine/Pelvis Exam Back/Spine: Present full ROM Routine Skin Exam Present intact Routine Neurological Exam Present alert and oriented X3 Routine Psychiatric Exam Present normal affect OB - Results Labs Labs: Urine 07/11/22 07/11/22 Range/Units 05:35 07:35 Urine Color Yellow Yellow (Yellow) Urine Appearance Sl cloudy Clear (Clear) Urine pH 6.0 6.0 (5.0-8.5) Ur Specific [place] >= 1.030 1.025 (1.005-1.030) Urine Protein Trace Negative (Negative) Urine Glucose (UA) Negative Negative (Negative) OB - A/P Antepartum (1) delivery delivered: Status: Acute (2) History of : Status: Acute She is here for repeat lower segment transverse section at term. Additional Plan Planning to breastfeed?: Yes Plan: other
[2022-07-11 12:35] LABS: Amphetamine/Metha Screen,Urine Negative ng/ml (<1000); Barbiturates Screen,Urine Negative ng/ml (<200)
[2022-07-11 12:36] LABS: Benzodiazepines Screen,Urine Negative ng/ml (<200)
[2022-07-11 12:37] LABS: Cannabinoid Screen,Urine Negative ng/ml (<50); Cocaine Screen,Urine Negative ng/ml (<300)
[2022-07-11 12:38] LABS: Methadone Screen,Urine Negative ng/ml (<300)
[2022-07-11 12:39] LABS: Opiate Screen,Urine Negative ng/ml (<300); Phencyclidine Screen,Urine Negative ng/ml (<25)
--- NOTE | 2022-07-11 13:04 | CARE MANAGER ---
Addendum entered by Kimmy Higgins 07/16/22 10:21: Cord screen result is NEGATIVE. Original Note: CM received consult r/t THC use early in . I met with patient to discuss THC use and to confirm if she needed any assistance. Patient states that she does not use marijuana any more after finding out that she was . She was positive in Dec. and in Feb. Patient states that she does not need any resources as she no longer uses. Drug tox screen is not back yet this admission. Patient was also offered information on the Hands program, but declined. She has a 17 mo old female as well who does live with her. Per patient, plan is for baby to go home with her. 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 I will notify OB that once toxicology report is back, if positive for THC, case would need to be reported to CPS.
[2022-07-12 07:52] LABS: Hematocrit 31.8 % (37.0-47.0); Hemoglobin 10.1 g/dL (12.2-16.2)
--- NOTE | 2022-07-12 10:18 | EXP.PN ---
Subjective *Date: 07/12/22 *Time: 10:18 Interval history: She seems to be doing well. Her hemoglobin is 10.1. Her blood pressures are normal. Her pain is reasonably well controlled. She has been taking IV pain medicines and we will order some oral pain medicine. Exam Data for Last 24 hours Vital signs and Labs for Last 24 Hours: Temp Pulse Resp BP Pulse Ox 98.2 F 87 14 121/70 98 07/11/22 09:05 07/11/22 09:05 07/11/22 09:05 07/11/22 09:05 07/11/22 09:05 Laboratory Results - last 24 hr 07/11/22 05:35: Urine Opiates Screen Negative, Urine Methadone Screen Negative, Ur Barbituates Screen Negative, Ur Phencyclidine Scrn Negative, Ur Amphetamines Screen Negative, U Benzodiazepines Scrn Negative, Urine Cocaine Screen Negative, U Marijuana (THC) Screen Negative 07/12/22 07:08: Hgb 10.1 L, Hct 31.8 L I & O for Last 24 hours: Intake & Output 07/09/22 07/10/22 07/11/22 07/12/22 11:59 11:59 11:59 11:59 Intake Total 1999 Balance 1999 Weight 282 lb Constitutional Constitutional: no acute distress and cooperative *Routine HEENT Exam Head: Present normocephalic Assessment and Plan *Assessment and plan (1) History of : Status: Acute Category: Surgical Code(s): Z98.891 - History of uterine scar from previous surgery (2) delivery delivered: Status: Acute Category: Medical Code(s): O82 - Encounter for delivery without indication Assessment and plan all Dx Plan of Treatment: She continues to do well this morning. We will plan to send her home tomorrow. We will start oral pain medicine.
--- NOTE | 2022-07-13 10:47 | EXP.DC.SUM ---
General Admission date:: 07/11/22 HPI HPI HPI: She is a 31-year-old 2 para 1 at 39 weeks gestational age who has had a previous section. As result of that she was brought in for repeat lower segment transverse section at term. Hospital Course Hospital Course Hospital Course: On July 11, 2022 she underwent a repeat lower segment transverse section. She delivered a liveborn male child at 7:54 AM. The baby weighed 7 pounds 9 ounces and was 19-1/2 inches long. He had Apgars of 8 at 1 minute and 9 at 5 minutes. She has done well and has remained afebrile throughout hospitalization. She is eating and drinking and ambulating. She is breast-feeding. She has O+ blood, she is rubella immune and was group B streptococcus positive. She is discharged home to follow-up with me in approximately 2 weeks time. She was given the usual instructions with respect to limiting her activity, driving and sexual activity. She was given instructions with respect to wound care. Her condition on discharge is stable and improved. Exam Data for Last 24 hours Vital signs and Labs for Last 24 Hours: Temp Pulse Resp BP Pulse Ox 98.2 F 87 14 121/70 98 07/11/22 09:05 07/11/22 09:05 07/11/22 09:05 07/11/22 09:05 07/11/22 09:05 I & O for Last 24 hours: Intake & Output 07/10/22 07/11/22 07/12/22 07/13/22 11:59 11:59 11:59 11:59 Intake Total 1999 Balance 1999 Weight 282 lb Constitutional Constitutional: no acute distress *Routine HEENT Exam Head: Present normocephalic *Routine Abdominal Exam Abdominal: Present soft and surgical scars (Incision is clean and dry) DS: Diagnosis Discharge Diagnosis (1) History of : Status: Acute (2) delivery delivered: Status: Acute Meds Home Medications and Allergies Home Medications Medication Instructions Recorded Confirmed Type cyclobenzaprine 5 mg tablet 5 mg PO TIDP PRN Muscle Spasm 07/11/22 07/11/22 History ferrous sulfate 325 mg (65 mg 325 mg PO DAILY Supplement 07/11/22 07/11/22 History iron) tablet prenat.vits,peyman,hij-maag-rniah 1 tab PO DAILY Supplement 07/11/22 07/11/22 History oxycodone-acetaminophen 5 mg-325 1 tab PO Q46H PRN severe pain. #20 07/13/22 Rx mg tablet (Percocet) tabs New Prescriptions to Start Prescriptions: oxycodone-acetaminophen [Percocet] Kashif Coronado Allergies Allergy/AdvReac Type Severity Reaction Status Date / Time No Known Allergies Allergy Verified 07/08/22 09:39 Discharge Plan Disposition Patient Disposition: Home, Self-Care Discharge Order Discharge Orders: Discharge Order (Routine); Ordered 07/13/22 Ordered By: Kashif Coronado Follow up Plan Follow up with: Kashif Coronado MD [Staff Physician] - 07/25/22 9:30 am Prescriptions/Medication Reconciliation: New oxycodone-acetaminophen [Percocet] 5-325 mg Tablet 1 tab PO Q46H PRN (Reason: severe pain.) Qty: 20 0RF Continued ferrous sulfate 325 mg (65 mg iron) tablet 325 mg PO DAILY prenat.vits,peyman,esk-omjs-nfdlz Tablet 1 tab PO DAILY cyclobenzaprine 5 mg tablet 5 mg PO TIDP PRN (Reason: Muscle Spasm) Label Comments: TAKE ONE TABLET BY MOUTH THREE TIMES DAILY MAY CAUSE DROWSINESS Problem Reconciliation Problems Reviewed?: Yes Patient Discharge Instructions Additional Instructions: *No tub baths for 6 weeks* *Nothing in the Vagina for 6 weeks* *No heavy lifting* *No strenuous activity* *No driving while on opioid pain medication.* Patient Instructions: Depression, Hemorrhage, DI for , DI for Pre-eclampsia, [facility] Post Discharge Instructions Providers Primary Care Provider: Provider,Referral Admit Provider: Kashif Coronado Attending Provider: Kashif Coronado
== END 2022-07-13 11:35 | disposition home or self-care (01) | DRG 788 ==
PROVIDERS: Admitting Provider Nurse Practitioner Obstetrics & Gynecology; Visit Provider Nurse Practitioner Obstetrics & Gynecology
PROC: 10D00Z1 Extraction of Products of Conception, Low, Open Approach (ICD-10-PCS; CPT 59514; principal; 2022-07-11 07:30)
DX: O34.211 Maternal care for low transverse scar from previous cesarean delivery (principal); N85.8 Other specified noninflammatory disorders of uterus; Z37.0 Single live birth; O75.89 Other specified complications of labor and delivery; Z3A.39 39 weeks gestation of pregnancy
CPT/HCPCS: 59514; 36415; 59025; 80053; 80305; 81001; 82962; 85014; 85018; 85025; 86850; 94761; C9290; C9803; G0283; J2405; U0003; U0005

== ENCOUNTER 2023-06-13 11:48 | Emergency (ER) | payer OTHER, SELFPAY ==
[2023-06-13 11:49] VITALS: BP 110/73; PULSE 101; RESP 18; TEMP 36.7; O2SAT 100; BMI 37.5
--- NOTE | 2023-06-13 12:11 | EXP.UTC ---
Discharge Plan Disposition Patient Disposition: Home, Self-Care Condition: Good Prescriptions Prescriptions: New amoxicillin [amoxicillin] 500 mg tablet 500 mg PO TID 10 Days Qty: 30 0RF vmiuhhhxwjuomxg-mefktrjsi-NB [Bromfed DM] 2-30-10 mg/5 mL Syrup 5 ml PO Q6H PRN (Reason: Cough) Qty: 240 0RF prednisone 10 mg tablet 10 mg PO BID 3 Days Qty: 6 0RF Referrals Follow up/Referrals: Provider,Referral, MD [Primary Care Provider] - See instructions Activity Restrictions/Add. Instructions Additional Instructions/Restrictions: Drink plenty of fluids. Take tylenol or ibuprofen for pain or fever. Take the medications as directed. Follow up with your regular doctor. GO TO THE ER FOR ANY WORSENING SYMPTOMS Clinical Impressions Clinical Impression: Pharyngitis, Otitis media Instructions Patient Instructions: DI for Pharyngitis/Tonsillopharyngitis -- Adult Discharge ED Provider: Michael Hu [facility] General Stated complaint: Ear ache and sore throat Mode of Arrival: Ambulatory Source of Information: Patient Limitations: No Limitations Time Seen by Provider: 06/13/23 12:15 Description of Symptoms (Recalled from Triage Doc. by RN): Patient reports left ear pain and sore throat for 5 days. HEENT Symptoms (Recalled from RN notes): Yes Resp Symptoms (Recalled from RN notes): No Skin Symptoms (Recalled from RN notes): No MS Symptoms (Recalled from RN notes): No Functional Status (Recalled from RN notes): wnl History of Present Illness Provider Complaint: She states that for the past 5 days she has had right ear pain and sore throat. Related Data Previous Rx's Medication Instructions Recorded amoxicillin 500 mg tablet 500 mg PO TID 10 days #30 tabs 06/13/23 vfvdlsouyktadtl-ozcvrgzrryptjvk-KR 5 ml PO Q6H PRN Cough #240 mL 06/13/23 2 mg-30 mg-10 mg/5 mL oral syrup (Bromfed DM) prednisone 10 mg tablet 10 mg PO BID 3 days #6 tabs 06/13/23 Allergies Allergy/AdvReac Type Severity Reaction Status Date / Time No Known Allergies Allergy Verified 08/25/22 15:46 Worker's Comp Is this a Worker's Comp case?: No [facility] Disclaimer: The information contained in this section may have been updated after the patient was seen, as this information can be updated by other users. Medical History Morbid obesity with BMI of 40.0-44.9, adult Surgical History History of Social History Smoking Status: Former smoker second hand exposure: No alcohol intake: never substance use type: denies use and marijuana current occupational status: employed Travel in the last 8 weeks: None household members: friend(s) housing: house current occupation: [employer] current occupational exposures/hazards: No caffeine: No ROS Obtained: Yes All systems reviewed & no additional complaints except as documented Constitutional Constitutional: Reports chills and Reports fever(s) Eyes Eyes: Denies eye discharge ENT Ears, Nose, Mouth, and Throat: Reports as per HPI Cardiovascular Cardiovascular: Denies chest pain Respiratory Respiratory: Denies chest congestion and Reports cough Gastrointestinal Gastrointestingal: Reports nausea; Denies abdominal pain, constipation, cramping, diarrhea or vomiting Musculoskeletal Musculoskeletal: Denies arthralgias Integumentary/Breasts Skin/Breast: Denies rash Neurologic Neurologic: Denies paresthesias Physical Exam General General appearance: alert and in no apparent distress Head Head exam: atraumatic and normocephalic Eye Eye exam: Present normal appearance, PERRL and EOMI ENT ENT exam: Present normal exam, normal oropharynx, mucous membranes moist and TM's normal bilaterally Neck Neck exam: Present normal inspection, full ROM and trachea midline; Absent tenderness, meningismus or ly
[2023-06-13 12:27] LABS: UTC Strep Screen (Rapid) Negative (Negative)
[2023-06-13 12:51] VITALS: BP 110/73; PULSE 101; RESP 18; TEMP 36.7; O2SAT 100
== END 2023-06-13 12:54 | disposition home or self-care (01) ==
PROVIDERS: Emergency Provider Nurse Practitioner Family
DX: J02.9 Acute pharyngitis, unspecified (principal); H66.91 Otitis media, unspecified, right ear; E66.01 Morbid (severe) obesity due to excess calories; Z68.41 Body mass index [BMI] 40.0-44.9, adult; Z87.891 Personal history of nicotine dependence
CPT/HCPCS: 87880; 99212; 99214; G0463

== ENCOUNTER 2024-01-09 08:51 | Emergency (ER) | payer OTHER, SELFPAY ==
[2024-01-09 09:00] VITALS: BP 113/54; PULSE 78; RESP 19; TEMP 37; O2SAT 98; BMI 45.1
[2024-01-09 09:22] LABS: UTC Strep Screen (Rapid) Negative (Negative)
--- NOTE | 2024-01-09 09:23 | EXP.UTC ---
Discharge Plan Disposition Patient Disposition: Home, Self-Care Condition: Good Prescriptions Prescriptions: New azithromycin [azithromycin] 250 mg tablet 250 mg PO DIRECTED Qty: 6 0RF Rx Instructions: Take two (2) tablets on day #1, then one (1) tablet day #2 thru #5 Referrals Follow up/Referrals: Provider,Referral, MD [Primary Care Provider] - See instructions Activity Restrictions/Add. Instructions Additional Instructions/Restrictions: Start antibiotics today be sure to take it as ordered with the full length of time although you should start feeling better in 24-48 hours. Change toothbrush and toothpaste 24-48 hours after starting antibiotics Tylenol or Motrin as needed for fever or pain Encourage fluids, water, Gatorade, Powerade, try cold fluids, popsicles, ice cream will make it feel better You are contagious for 24 hours. Avoid kissing anyone, no eating or drinking after anyone. You are contagious. Follow-up the ER for new or worsening symptoms or no noticeable improvement over the next 24-48 hours. Follow-up with PCP this week. Clinical Impressions Clinical Impression: Strep sore throat Instructions Patient Instructions: DI for Strep Throat Discharge ED Provider: Juan ([facility] HPI General Stated complaint: sore throat, congestion, left ear pain Mode of Arrival: Ambulatory Source of Information: Patient Limitations: No Limitations Time Seen by Provider: 01/09/24 09:23 Description of Symptoms (Recalled from Triage Doc. by RN): PATIENT C/O SORE THROAT, EAR PAIN, AND CONGESTION THAT STARTED THIS MORNING HEENT Symptoms (Recalled from RN notes): Yes Resp Symptoms (Recalled from RN notes): No Skin Symptoms (Recalled from RN notes): No MS Symptoms (Recalled from RN notes): No Functional Status (Recalled from RN notes): WNL History of Present Illness Provider Complaint: 33 yr old female presents for sore throat, alberto ear pain and congestion that started this am. Related Data Previous Rx's Medication Instructions Recorded azithromycin 250 mg tablet 250 mg PO DIRECTED #6 tabs 01/09/24 Allergies Allergy/AdvReac Type Severity Reaction Status Date / Time No Known Allergies Allergy Verified 08/25/22 15:46 Worker's Comp Is this a Worker's Comp case?: No [facility] Disclaimer: The information contained in this section may have been updated after the patient was seen, as this information can be updated by other users. Medical History , [employer] SPECIALIST) Morbid obesity with BMI of 40.0-44.9, adult Surgical History , [employer] SPECIALIST) History of Social History , [employer] SPECIALIST) Smoking Status: Former smoker tobacco type: cigarettes packs per day: 1 second hand exposure: No alcohol intake: never substance use type: denies use and marijuana current occupational status: employed Travel in the last 8 weeks: None household members: friend(s) housing: house current occupation: [employer] current occupational exposures/hazards: No caffeine: No ROS Obtained: Yes All systems reviewed & no additional complaints except as documented Constitutional Constitutional: Reports system reviewed and no additional complaints, except as documented and Reports as per HPI Eyes Eyes: Reports system reviewed and no additional complaints, except as documented ENT Ears, Nose, Mouth, and Throat: Reports system reviewed and no additional complaints, except as documented, Reports as per HPI, Reports otalgia, Reports nasal congestion and Reports sore throat Cardiovascular Cardiovascular: Reports system reviewed and no additional complaints, except as documented Respiratory Respiratory: Reports system reviewed and no additional complaints, except as documented Gastrointestinal Gastrointestingal: Reports system reviewed and no additional complaints, except as documented Musculoskeletal Musculoskeletal: Reports system reviewed and no additional complaints, except as documented Integumentary/Breasts Skin/Breast: Reports system reviewed and no additional complaints, except as documented Neurologic Neurologic: Reports system reviewed and no additional complaints, except as documented Endocrine Endocrine: Reports system reviewed and no additional complaints, except as documented Allergic/Immunologic Allergic/Immunologic: Reports system reviewed and no additional complaints, except as documented Physical Exam General General appearance: alert and in no apparent distress Eye Eye exam: Present normal appearance and PERRL ENT ENT exam: Present mucous membranes moist and normal external ear exam Expanded ENT Exam TM/Canal exam: Bilateral TM: erythema and bulging Throat exam: Present tonsillar erythema, tonsillomegaly and tonsillar exudate Neck Neck exam: Present normal inspection, full ROM and trachea midline; Absent meningismus or lymphadenopathy Respiratory Respiratory exam: Present normal lung sounds bilaterally; Absent respiratory distress Cardiovascular Cardiovascular exam: Present regular rate and normal rhythm; Absent JVD Abdominal Exam Abdominal exam: Present soft and normal bowel sounds; Absent distention, tenderness or guarding Extremities Exam Extremities exam: Present normal inspection, full ROM and normal capillary refill; Absent calf tenderness Neurological Exam Neurological exam: Present alert and oriented X3 Skin Skin exam: Present warm, dry, intact and normal color Lymphatic Lymphatic Findings: no adenopathy Medical Decision Making Medical Records Medical records reviewed: Yes I reviewed the patient's medical records. Will Inquiry Pt receiving controlled substance: No Will was queried for this patient: No Vital Signs: 01/09/24 09:00 Temperature 98.6 F Temperature Source Oral Pulse Rate [Right Brachial] 78 Respiratory Rate 19 Blood Pressure [Right Arm] 113/54 L Blood Pressure Mean [Right Arm] 73 Blood Pressure Source [Right Arm] Automatic Cuff Blood Pressure Position [Right Arm] Sitting 02 Sat by Pulse Oximetry 98 Oxygen Delivery Method Room Air Lab Data Lab results reviewed: Yes I reviewed the patient's lab results. Lab Results 01/09/24 09:15: Strep Scn Rapid Clinic Negative Orders (Tests/Meds): ORDERS Category Date Time Status Strep Screen Confirmation Stat Micro 01/09/24 09:15 Received
[2024-01-09 09:29] VITALS: BP 113/54; PULSE 78; RESP 19; TEMP 37; O2SAT 98
== END 2024-01-09 09:32 | disposition home or self-care (01) ==
PROVIDERS: Emergency Provider Nurse Practitioner Family
DX: J02.0 Streptococcal pharyngitis (principal); R07.0 Pain in throat; R09.81 Nasal congestion; H92.03 Otalgia, bilateral; Z87.891 Personal history of nicotine dependence
CPT/HCPCS: 87880; 99212; 99214; G0463